=== PATIENT | male | born 1940 | race Caucasian/White ===

== ENCOUNTER → 2017-02-07 | Outpatient (CLI) | payer MEDICARE, BC ==
[2017-02-07 11:50] LABS: Calcium 10.3 mg/dL (8.4-10.2); Potassium 5.1 mmol/L (3.5-5.1); Total Bilirubin 0.8 mg/dL (0.2-1.3); Total Protein 7.2 g/dL (6.3-8.2)
== END | disposition home or self-care (01) ==
LOC: LABWHC1 11:05
PROVIDERS: ATTEND Internal Medicine Interventional Cardiology
DX: I10 Essential (primary) hypertension (principal)
CPT/HCPCS: 36415; 80053

== ENCOUNTER → 2017-02-21 | Outpatient (CLI) | payer MEDICARE, BC ==
[2017-02-21 10:56] LABS: Anion Gap 11 mmol/L; Blood Urea Nitrogen 27 mg/dL (9-20); Carbon Dioxide 30 mmol/L (22-30); Chloride 101 mmol/L (98-107); Potassium 4.1 mmol/L (3.5-5.1); Sodium 142 mmol/L (137-145)
== END | disposition home or self-care (01) ==
LOC: LABWHC1 10:30
PROVIDERS: ATTEND Internal Medicine Interventional Cardiology
DX: I10 Essential (primary) hypertension (principal)
CPT/HCPCS: 36415; 80051; 82565; 84520

== ENCOUNTER → 2017-03-28 | Outpatient (CLI) | payer MEDICARE, BC ==
[2017-03-28 14:45] LABS: Potassium 4.4 mmol/L (3.5-5.1)
== END | disposition home or self-care (01) ==
LOC: LABWHC1 13:43
PROVIDERS: ATTEND Internal Medicine Interventional Cardiology
DX: I10 Essential (primary) hypertension (principal)
CPT/HCPCS: 36415; 80051; 82565; 84520

== ENCOUNTER 2018-04-11 14:41 | Emergency (ER) | payer MEDICARE, BC ==
[2018-04-11 15:08] VITALS: RESP 18
[2018-04-11 15:18] LABS: Albumin 2.8 g/dL (3.5-5.0); Calcium 8.7 mg/dL (8.4-10.2); Magnesium 2.2 mg/dL (1.6-2.3); Potassium 4.3 mmol/L (3.5-5.1); Total Bilirubin 0.6 mg/dL (0.2-1.3); Total Protein 5.6 g/dL (6.3-8.2)
[2018-04-11 15:24] LABS: Anisocytosis Slight; Hypochromasia Marked; MCH 29.1 pg (25.0-35.0); MCHC 30.1 g/dL (31.0-37.0); MCV 96.6 fL (80.0-100.0); Macrocytosis Slight; Mean Platelet Volume 6.9; Platelet Count 431 k/uL (150-450); RBC 2.28 m/uL (4.30-5.90); RDW 18.2 % (11.5-15.5); WBC 15.4 k/uL (3.8-10.6)
[2018-04-11 15:30] LABS: HGB 6.6 gm/dL (13.0-17.5)
[2018-04-11 15:44] LABS: Lymphocytes # (M) 0.77 k/uL (1.0-4.8); Monocytes # (M) 1.69 k/uL (0-1.0); Neutrophils # (M) 13.09 k/uL (1.3-7.7); Neutrophils % (M) 85 %; Nucleated Red Blood Cells 0 /100 WBC (0-0); Total Cells Counted 200
[2018-04-11 15:46] LABS: Poikilocytosis (M) Present; Polychromasia Present
[2018-04-11 15:50] LABS: Target Cells Present
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
[2018-04-11 20:19] VITALS: BP 127/60; PULSE 89; TEMP 99
== END 2018-04-11 20:33 | disposition home or self-care (01) ==
LOC: EC 14:41
DX: D64.9 Anemia, unspecified (principal); E78.5 Hyperlipidemia, unspecified; I10 Essential (primary) hypertension; M19.90 Unspecified osteoarthritis, unspecified site; Z87.891 Personal history of nicotine dependence; Z79.82 Long term (current) use of aspirin; Z79.01 Long term (current) use of anticoagulants; Z79.899 Other long term (current) drug therapy; Z93.1 Gastrostomy status
CPT/HCPCS: 36415; 93005; 86900; 86901; 80053; 83735; 85025; 86850; 86920; 82272; 99284; P9016

== ENCOUNTER 2018-04-13 14:55 | Emergency (ER) | payer MEDICARE, BC ==
[2018-04-13] MEDS ORDERED: ACETAMINOPHEN TAB 325 MG TAB PO STA (15:45)
[2018-04-13] MEDS ORDERED: RX INFO: IV CONTRAST WAS GIVEN 1 EACH MISC MISCELLANE PRN (15:45)
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
[2018-04-13 16:29] LABS: Anisocytosis Slight; Basophils % (A) 0 %; Eosinophils # (A) 0.3 k/uL (0-0.7); Eosinophils % (A) 3 %; HCT 24.6 % (39.0-53.0); HGB 7.3 gm/dL (13.0-17.5); Hypochromasia Marked; Lymphocytes # (A) 0.8 k/uL (1.0-4.8); Lymphocytes % (A) 7 %; MCHC 29.7 g/dL (31.0-37.0); MCV 97.9 fL (80.0-100.0); Macrocytosis Slight; Mean Platelet Volume 6.9; Monocytes # (A) 0.7 k/uL (0-1.0); Monocytes % (A) 7 %; Neutrophils % (A) 82 %; Platelet Count 428 k/uL (150-450); RBC 2.51 m/uL (4.30-5.90); WBC 10.9 k/uL (3.8-10.6)
[2018-04-13 16:35] LABS: INR 0.9 (<1.2); Partial Thromboplastin Time 26.3 sec (22.0-30.0); Prothrombin Time 10.1 sec (9.0-12.0)
[2018-04-13 16:40] LABS: Albumin 2.9 g/dL (3.5-5.0); Calcium 8.5 mg/dL (8.4-10.2); Magnesium 2.2 mg/dL (1.6-2.3); Potassium 4.6 mmol/L (3.5-5.1); Total Bilirubin 0.6 mg/dL (0.2-1.3); Total Protein 5.8 g/dL (6.3-8.2)
[2018-04-13 16:43] LABS: Creatine Kinase 30 U/L (55-170)
[2018-04-13 16:56] LABS: Creatine Kinase MB 1.2 ng/mL (0.0-2.4); Troponin I <0.012 ng/mL (0.000-0.034)
--- NOTE | 2018-04-13 18:08 | XR ---
EXAMINATION TYPE: XR chest 1V DATE OF EXAM: 04/13/2018 COMPARISON: 03/14/2018 HISTORY: Leg edema TECHNIQUE: Single frontal view of the chest is obtained. FINDINGS: There is no heart failure nor confluent pneumonic infiltrate. Thoracic aorta is atheromato us. Heart size is normal. There are chest leads. IMPRESSION: No active cardiopulmonary disease. No change.
[2018-04-13] MEDS ORDERED: FUROSEMIDE 10 MG/ML 4 ML VIAL IV STA (18:22)
--- NOTE | 2018-04-13 18:52 | CT ---
EXAMINATION TYPE: CT abdomen pelvis w con DATE OF EXAM: 04/13/2018 COMPARISON: None HISTORY: Abdominal swelling post surgery. Low hemoglobin. Left hip and pelvic surgery. CT DLP: 1115 mGycm Automated exposure control for dose reduction was used. TECHNIQUE: Helical acquisition of images was performed from the lung bases through the pelvis. CONTRAST: Performed without Oral Contrast and with IV Contrast, patient injected with 100 mL of Isovue 300. FINDINGS: There is some patchy atelectasis at the right lung base. Heart is normal in size. There is minimal pl eural thickening at the right lung base. There is no pericardial effusion. There is coronary artery c alcification. Liver and gallbladder appear normal. Bile ducts are not dilated. Spleen appears normal. There is no p ancreatic mass. Stomach has normal size and contour. There is no adrenal mass. Kidneys show satisfactory contrast opacification. There is no hydronephrosi s. There is minimal renal vascular calcification. 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 There is no evidence of dissection. There is patency of the iliac and femoral arter ies. There is left hip surgery. There is metal artifact. Bladder distends smoothly. There is no free fluid in the pelvis. There is no evidence of inguinal hernia. There is no evidence of a bowel obstruc tion. I see no free air. There is no ascites. There is no evidence of mesenteric edema. There is a 1. 3 cm cyst on the lateral right kidney. Appendix is not seen. There is no sign of appendicitis. There is moderate multilevel spondylotic changes noted in the lumbar spine. There is no compression fractur e. 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 There are some destructive changes in the anterior aspect of the L2 vertebral body. IMPRESSION: THERE IS SOME PATCHY ATELECTASIS AT THE RIGHT LUNG BASE. NO RENAL STONE OR OBSTRUCTION. NO SIGN OF AN ACUTE ABDOMEN. ABDOMINAL AORTIC ANEURYSM. L2 vertebral body destructive changes anteriorly of uncertain significance. This could relate to meta static disease.
--- NOTE | 2018-04-13 18:57 | CT ---
CT scan of the left hip. History pain and swelling. Comparison none. TECHNIQUE: Multiple axial sections were obtained from the left iliac crest to the mid shaft of the femur with c ontrast. Contrast is present from the CT abdomen pelvis exam. FINDINGS: There is 4.5 cm aneurysm of the lower abdominal aorta. There is extensive hardware fixating the left acetabulum and the left inferior and superior pubic rami. There is a left hip prosthesis. Prosthesis appears in good position. There is subcutaneous edema around the left thigh and hip. There is a compl ex appearing fluid collection lateral to the femoral component of the prosthesis. This appears to jeevan sures 13 cm in length and up to 4.3 cm in diameter. There is mixed density in the posterior left butt ock region consistent with hematoma. This measures approximately 6 cm. There is a lucency involving t he lesser trochanter of the femur with loss of cortex. IMPRESSION: Hip prosthesis appears in anatomic position. Extensive surgery. Complex fluid collections lateral to the femoral component of the prosthesis and also in the left but tock consistent with hematoma or abscess. Follow-up is recommended. There are destructive changes of the lesser trochanter that could relate to osteomyelitis.
[2018-04-13 19:13] LABS: Appearance,Urine Clear (Clear); Bacteria,Urine Rare /hpf; Bilirubin,Urine Negative (Negative); Blood,Urine Moderate (Negative); Color,Urine Yellow; Glucose,Urine (UA) Negative (Negative); Ketones,Urine Negative (Negative); Leukocyte Esterase,Urine Small (Negative); Nitrite,Urine Negative (Negative); PH, Urine 6.5 (5.0-8.0); Protein,Urine Trace (Negative); RBC,Urine 28 /hpf (0-5); Specific Gravity,Urine 1.024 (1.001-1.035); Squamous Epithelial Cell,Urine <1 /hpf (0-4); Urobilinogen,Urine <2.0 mg/dL (<2.0); WBC,Urine 34 /hpf (0-5)
[2018-04-13] MEDS ORDERED: VANCOMYCIN IV PER PHARMACY 1 EACH MISC MISCELLANE PRN (19:59)
[2018-04-13] MEDS ORDERED: VANCOMYCIN 1,500 MG in SODIUM CHLORIDE 0.9% 250 ML IVPB STA (20:10)
[2018-04-13 20:33] VITALS: PULSE 84
[2018-04-13 20:43] VITALS: BP 118/57; RESP 18; TEMP 100.2
[2018-04-13] MEDS ORDERED: PIPERACILLIN-TAZOBACTAM 3.375 GM in SODIUM CHLORIDE 0.9% 100 ML IVPB ONE (21:15)
[2018-04-14] MEDS ORDERED: PIPERACILLIN-TAZOBACTAM 3.375 GM in SODIUM CHLORIDE 0.9% 100 ML IVPB SCH (06:00)
[2018-04-14] MEDS ORDERED: VANCOMYCIN 1,500 MG in SODIUM CHLORIDE 0.9% 250 ML IVPB SCH (14:00)
== END 2018-04-13 21:10 | disposition short-term general hospital (02) ==
LOC: EC 14:55
DX: D64.9 Anemia, unspecified (principal); N39.0 Urinary tract infection, site not specified; A41.9 Sepsis, unspecified organism; R79.89 Other specified abnormal findings of blood chemistry; M96.89 Other intraoperative and postprocedural complications and disorders of the musculoskeletal system; R60.0 Localized edema; E78.5 Hyperlipidemia, unspecified; I10 Essential (primary) hypertension; M19.90 Unspecified osteoarthritis, unspecified site; Z87.891 Personal history of nicotine dependence; Z79.01 Long term (current) use of anticoagulants; Z79.82 Long term (current) use of aspirin; Z79.899 Other long term (current) drug therapy; Z96.642 Presence of left artificial hip joint; Z98.890 Other specified postprocedural states; Z87.81 Personal history of (healed) traumatic fracture
CPT/HCPCS: 51798; 36415; 93005; 86900; 86901; 83880; 80053; 82550; 82553; 83605; 83735; 84484; 85025; 85610; 85730; 86850; 86920; 81001; 87040; 87086; 87502; 71045; 74177; 73701; 99285; 96365; 96375; P9016; J3370; J1940; Q9967; 87077; 87186

== ENCOUNTER 2018-08-30 13:44 | Inpatient (IN) | payer MEDICARE, BC ==
[2018-08-30] MEDS ORDERED: IBUPROFEN 600 MG TAB PO STA (14:00)
[2018-08-30] MEDS ORDERED: ACETAMINOPHEN TAB 500 MG TAB PO STA (14:00)
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
[2018-08-30] MEDS: SODIUM CHLORIDE 0.9% 500 ML 500 ML IV SCH (14:24)
--- NOTE | 2018-08-30 14:41 | XR ---
EXAMINATION TYPE: XR chest 2V DATE OF EXAM: 08/30/2018 COMPARISON: 04/13/2018 HISTORY: Weakness TECHNIQUE: Frontal and lateral views of the chest are obtained. FINDINGS: New spiculated right upper lobe suprahilar density is seen. Remainder the lungs are clear. Superior mediastinal contour widening is partially attributable to rotation and appears chronic, les s pronounced than on the prior of 04/13/2018. The osseous structures are intact. Moderate multilevel degenerative changes of the spine. IMPRESSION: New suprahilar density that given its spiculated morphology is concerning for right uppe r lobe mass, however this could alternatively represent pneumonia. Correlate with clinical findings t o determine the need for short-term follow-up versus CT thorax.
[2018-08-30 14:45] LABS: Anisocytosis Slight; Basophils % (A) 0 %; Eosinophils % (A) 0 %; HCT 32.2 % (39.0-53.0); HGB 9.6 gm/dL (13.0-17.5); Hypochromasia Marked; Lymphocytes # (A) 0.7 k/uL (1.0-4.8); Lymphocytes % (A) 3 %; MCH 24.5 pg (25.0-35.0); MCHC 29.9 g/dL (31.0-37.0); MCV 82.1 fL (80.0-100.0); Mean Platelet Volume 6.8; Monocytes # (A) 1.1 k/uL (0-1.0); Monocytes % (A) 5 %; Neutrophils # (A) 20.9 k/uL (1.3-7.7); Neutrophils % (A) 91 %; Platelet Count 613 k/uL (150-450); RBC 3.92 m/uL (4.30-5.90); RDW 18.2 % (11.5-15.5); WBC 22.9 k/uL (3.8-10.6)
[2018-08-30 14:52] LABS: Albumin 3.1 g/dL (3.5-5.0); Potassium 4.9 mmol/L (3.5-5.1); Total Bilirubin 0.6 mg/dL (0.2-1.3); Total Protein 6.2 g/dL (6.3-8.2)
[2018-08-30 14:58] LABS: Partial Thromboplastin Time 27.1 sec (22.0-30.0); Prothrombin Time 10.9 sec (9.0-12.0)
[2018-08-30 15:15] LABS: Appearance,Urine Cloudy (Clear); Bilirubin,Urine Negative (Negative); Blood,Urine Trace (Negative); Color,Urine Yellow; Glucose,Urine (UA) Negative (Negative); Hyaline Casts,Urine 3 /lpf (0-2); Ketones,Urine Negative (Negative); Leukocyte Esterase,Urine Large (Negative); Mucus,Urine Rare /hpf; Nitrite,Urine Positive (Negative); Protein,Urine Trace (Negative); RBC,Urine 8 /hpf (0-5); Specific Gravity,Urine 1.016 (1.001-1.035); Squamous Epithelial Cell,Urine 1 /hpf (0-4); Urobilinogen,Urine <2.0 mg/dL (<2.0); WBC,Urine 80 /hpf (0-5)
[2018-08-30] MEDS ORDERED: cefTRIAXone IN SWFI 1,000 MG/10 ML SYRINGE IVP STA (15:26)
[2018-08-30] MEDS ORDERED: AZITHROMYCIN 500 MG in SODIUM CHLORIDE 0.9% 250 ML IVPB STA (16:32)
[2018-08-30] MEDS ORDERED: PNEUMONIA PROTOCOL UTILIZED 1 EACH MISC PO PRN (16:32)
[2018-08-30] MEDS: SODIUM CHLORIDE 0.9% 1,000 ML IV SCH (18:24)
[2018-08-30] MEDS: HEPARIN SODIUM,PORCINE 5,000 UNIT/ML 1 ML VIAL SQ SCH (20:39)
[2018-08-30] MEDS: MEMANTINE 10 MG TAB PO SCH (20:39)
[2018-08-31] MEDS: SODIUM CHLORIDE 0.9% 1,000 ML IV SCH ×3 (00:10→15:33)
[2018-08-31] MEDS: buPROPion SR 150 MG TABLET.ER PO SCH (08:18)
[2018-08-31] MEDS: AZITHROMYCIN 500 MG TAB PO SCH (08:18)
[2018-08-31] MEDS: HEPARIN SODIUM,PORCINE 5,000 UNIT/ML 1 ML VIAL SQ SCH ×2 (08:18→22:37)
[2018-08-31] MEDS: DOCUSATE 100 MG CAP PO SCH (08:18)
[2018-08-31] MEDS: MEMANTINE 10 MG TAB PO SCH ×2 (08:18→22:35)
[2018-08-31] MEDS: amLODIPine 10 MG TAB PO SCH (08:18)
--- NOTE | 2018-08-31 09:28 | XR ---
EXAMINATION TYPE: XR chest 1V portable DATE OF EXAM: 08/31/2018 COMPARISON: 08/30/2018 INDICATION: Follow-up pneumonia TECHNIQUE: Single frontal view of the chest is obtained. FINDINGS: The heart size is normal. The pulmonary vasculature is normal. There is improving infiltrate in the right upper lobe. Atelectasis is likely present with elevation o f the minor fissure. Continued follow-up is recommended. Degenerative changes and probable chronic rotator cuff tear as the left shoulder IMPRESSION: 1. Resolving right upper lobe infiltrate. Follow-up to complete clearing is recommended.
[2018-08-31 11:35] LABS: Calcium 9.1 mg/dL (8.4-10.2); Potassium 4.3 mmol/L (3.5-5.1)
[2018-08-31 12:03] LABS: Anisocytosis Slight; Basophils % (A) 0 %; Eosinophils % (A) 0 %; HCT 28.9 % (39.0-53.0); HGB 8.6 gm/dL (13.0-17.5); Hypochromasia Marked; Lymphocytes # (A) 0.8 k/uL (1.0-4.8); Lymphocytes % (A) 7 %; MCH 24.8 pg (25.0-35.0); MCHC 29.9 g/dL (31.0-37.0); MCV 82.9 fL (80.0-100.0); Mean Platelet Volume 6.4; Microcytosis Slight; Monocytes # (A) 0.6 k/uL (0-1.0); Monocytes % (A) 4 %; Neutrophils # (A) 11.1 k/uL (1.3-7.7); Neutrophils % (A) 88 %; Platelet Count 475 k/uL (150-450); RBC 3.49 m/uL (4.30-5.90); RDW 18.7 % (11.5-15.5); WBC 12.6 k/uL (3.8-10.6)
--- NOTE | 2018-08-31 14:33 | XR ---
EXAMINATION TYPE: XR Hip RT and AP Pelvis DATE OF EXAM: 08/31/2018 COMPARISON: HISTORY: Pain fall TECHNIQUE: 2 view right hip with AP pelvis FINDINGS: Vascular calcification is noted. Joint spaces mild narrowing. No acute fractures or dislocations are evident. AP pelvis: Extensive repair of a left pelvic fracture is evident. IMPRESSION: 1. No acute osseous abnormality right hip. 2. Mild degenerative change.
[2018-08-31] MEDS: ACETAMINOPHEN TAB 325 MG TAB PO PRN (16:08)
[2018-08-31] MEDS: ASPIRIN 81 MG PO SCH (16:08)
[2018-08-31] MEDS: ATORVASTATIN 10 MG TAB PO SCH (16:08)
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
--- NOTE | 2018-09-01 00:54 | P.PN ---
Subjective Progress Note Date: 08/31/18 Principal diagnosis: Pneumonia right upper lobe Patient is a 78-year-old male with a known history of dementia, hypertension, hyperlipidemia and osteoarthritis and recent history of left hip fracture and fall came to ER with the complaints of generalized weakness and unable to walk without support. Patient has been having worsening weakness recently. Patient felt very weak and had a fall today which made him come to the ER. As per his also weak and leaned onto the floor. Denied any sudden fall or hit his head. Patient was released from the extended care facility 6 weeks ago. Denied any complaints of chest pain or shortness of breath. Patient does have cough w ithout sputum production. No fever no chills. Denied any heart racing of fast. No nausea vomiting or diarrhea. No dysuria or hematuria. No leg swelling. No focal weakness and numbness. No tingling sensation. Chest x-ray showed new sub-hilar density that given its spiculated morphology is concerning for right upper lobe mass, however this could alternatively the present pneumonia. Correlated the clinical findings to determine the need for short-term follow-up versus CT thorax. Patient was found have leukocytosis with WBC count 22, lactic acid 2.4 and a slightly elevated BUN and creatinine level. Patient is a poor historian and most the history was taken from the medical records and his at bedside. 08/31/2018 Patient is more awake and alert today. Able to communicate slowly. Patient does have underlying dementia otherwise. Leukocytosis is improving. Repeat chest x-ray showed resolving right upper lobe infiltrate. Patient is complaining of right hip pain and x-ray showed no acute process. Continue with pain management with Tylenol. No fever no chills. No nausea vomiting or abdominal pain. Patient was started on PTOT and possible transfer to rehab. Current medications reviewed. Objective - Vital Signs Vital signs: Vital Signs Temp 97.9 F 08/31/18 14:52 Pulse 82 08/31/18 15:02 Resp 18 08/31/18 15:02 BP 130/65 08/31/18 14:52 Pulse Ox 91 L 08/31/18 14:52 Intake & Output 08/30/18 08/31/18 08/31/18 18:59 06:59 18:59 Intake Total 340 100 Balance 340 100 Weight 74.843 kg Intake: Oral 340 100 Other: Voiding Method Urinal Incontinent Incontinent # Voids 1 3 - Exam PHYSICAL EXAMINATION: Patient is lying in the bed comfortably, no acute distress, awake alert and oriented. Generalized weakness.. HEENT: Normocephalic. Neck is supple. Pupils reactive. Nostrils clear. Oral cavity is moist. Ears reveal no drainage. Neck reveals no JVD, carotid bruits, or thyromegaly. CHEST EXAMINATION: Trachea is central. Symmetrical expansion. No wheezing. Lung chao clear to auscultation and percussion. CARDIAC: Normal S1, S2 with no gallops. No murmurs ABDOMEN: Soft. Bowel sounds normal. No organomegaly. No abdominal bruits. Extremities: reveal no edema. No clubbing or cyanosis Neurologically awake, alert, oriented x2-3 with well-coordinated movements. No focal deficits noted Skin: No rash or skin lesions. Psychiatric: Coperative. Nonsuicidal Musculoskeletal: No joint swelling or deformity. Normal range of motion. - Labs CBC & Chem 7: 08/31/18 11:01 08/31/18 11:01 Labs: Abnormal Lab Results - Last 24 Hours (Table) 08/31/18 Range/Units 11:01 WBC 12.6 H (3.8-10.6) k/uL RBC 3.49 L (4.30-5.90) m/uL Hgb 8.6 L (13.0-17.5) gm/dL Hct 28.9 L (39.0-53.0) % MCH 24.8 L (25.0-35.0) pg MCHC 29.9 L (31.0-37.0) g/dL RDW 18.7 H (11.5-15.5) % Plt Count 475 H (150-450) k/uL Neutrophils # 11.1 H (1.3-7.7) k/uL Lymphocytes # 0.8 L (1.0-4.8) k/uL Microbiology - Last 24 Hours (Table) 08/30/18 14:56 Urine Culture - Preliminary Urine,Voided Assessment and Plan Assessment: Acute right upper lobe pneumonia. Possible right upper lobe mass cannot be excluded. Repeat chest x-ray showed resolving infiltrate. Acute urinary tract infection with gram-negative bacilli Sepsis secondary to pneumonia Lactic acidosis resolved Normocytic anemia. Rule out iron deficiency, B12 deficiency Generalized weakness and medical debility Dementia Hypertension Hyperlipidemia Osteoarthritis History of fall and left hip fracture earlier this year. Previous history of smoking DVT prophylaxis plan: Patient will be continued on antibiotics in the form of ceftriaxone and azithromycin. Continue the IV hydration. Continue the home medications. Pain management and stool softeners as needed. PTOT and further recommendations based on the clinical course. Prognosis is guarded this time. Discussed the plan with his at bedside in detail. Time with Patient: Greater than 30
[2018-09-01] MEDS: SODIUM CHLORIDE 0.9% 1,000 ML IV SCH (02:54)
[2018-09-01] MEDS: HEPARIN SODIUM,PORCINE 5,000 UNIT/ML 1 ML VIAL SQ SCH ×2 (08:27→21:38)
[2018-09-01] MEDS: DOCUSATE 100 MG CAP PO SCH (08:27)
[2018-09-01] MEDS: MEMANTINE 10 MG TAB PO SCH ×2 (08:27→21:35)
[2018-09-01] MEDS: amLODIPine 10 MG TAB PO SCH (08:27)
[2018-09-01] MEDS: AZITHROMYCIN 500 MG TAB PO SCH (08:27)
[2018-09-01] MEDS: buPROPion SR 150 MG TABLET.ER PO SCH (08:29)
[2018-09-01 08:39] LABS: Anisocytosis Slight; Basophils % (A) 0 %; Eosinophils % (A) 0 %; HCT 30.6 % (39.0-53.0); HGB 9.4 gm/dL (13.0-17.5); Hypochromasia Moderate; Lymphocytes % (A) 8 %; MCH 25.4 pg (25.0-35.0); MCHC 30.8 g/dL (31.0-37.0); MCV 82.5 fL (80.0-100.0); Mean Platelet Volume 6.3; Microcytosis Slight; Monocytes # (A) 0.7 k/uL (0-1.0); Monocytes % (A) 5 %; Neutrophils # (A) 10.1 k/uL (1.3-7.7); Neutrophils % (A) 85 %; Platelet Count 515 k/uL (150-450); RBC 3.71 m/uL (4.30-5.90); RDW 18.7 % (11.5-15.5)
[2018-09-01 09:16] LABS: African American GFR (CKD) >90 (>60 ml/min/1.73 sqM); Anion Gap 12 mmol/L; Blood Urea Nitrogen 16 mg/dL (9-20); Calcium 9.2 mg/dL (8.4-10.2); Carbon Dioxide 23 mmol/L (22-30); Chloride 106 mmol/L (98-107); Glucose 83 mg/dL (74-99); Potassium 3.7 mmol/L (3.5-5.1); Sodium 141 mmol/L (137-145)
[2018-09-01 10:23] LABS: T4, Free (Free Thyroxine) 1.77 ng/dL (0.78-2.19)
--- NOTE | 2018-09-01 10:33 | P.PN ---
Subjective Patient is a 78-year-old male with a known history of dementia, hypertension, hyperlipidemia and osteoarthritis and recent history of left hip fracture and fall came to ER with the complaints of generalized weakness and unable to walk without support. Patient has been having worsening weakness recently. Patient felt very weak and had a fall today which made him come to the ER. As per his also weak and leaned onto the floor. Denied any sudden fall or hit his head. Patient was released from the extended care facility 6 weeks ago. Denied any complaints of chest pain or shortness of breath. Patient does have cough without sputum production. No fever no chills. Denied any heart racing of fast. No nausea vomiting or diarrhea. No dysuria or hematuria. No leg swelling. No focal weakness and numbness. No tingling sensation. Chest x-ray showed new sub-hilar density that given its spiculated morphology is concerning for right upper lobe mass, however this could alternatively the present pneumonia. Correlated the clinical findings to determine the need for short-term follow-up versus CT thorax. Patient was found have leukocytosis with WBC count 22, lactic acid 2.4 and a slightly elevated BUN and creatinine level. Patient is a poor historian and most the history was taken from the medical records and his at bedside. 08/31/2018 Patient is more awake and alert today. Able to communicate slowly. Patient does have underlying dementia otherwise. Leukocytosis is improving. Repeat chest x-ray showed resolving right upper lobe infiltrate. Patient is complaining of right hip pain and x-ray showed no acute process. Continue with pain management with Tylenol. No fever no chills. No nausea vomiting or abdominal pain. Patient was started on PTOT and possible transfer to rehab. 09/01/2018 Patient denies dysuria or abdominal pain. He still have some dyspnea and some cough with little of phlegm. No chest pain. No exertional dyspnea. He is hemodynamically stable. Labs showing a still leukocytosis from 12.6 down to 12.0 K. Hemoglobin at 9.4, white platelet elevated at 5.5. INR is 1.0. BMP showing normal electrolytes of sodium 1 potassium and calcium. Creatinine is within normal limits at 0.9, his lactic acid is back to normal to 1.1. And TSH showing 0.3 while free T4 is within normal at 1.77. Urinalysis is suspicious for infection and patient is already on antibiotics of ceftriaxone and Zit hromax. It looks like patient most likely has pneumonia more than UTI. His pneumonia of the right upper lobe is suspicious for mass. We going to repeat chest x-ray tomorrow while he is on antibiotics. It is still suspicious lesion that might consider pulmonary team evaluation. The meantime continue with oral Zithromax and IV ceftriaxone while on gentle hydration of normal saline at 50 mL per hour Review of systems CONSTITUTIONAL: No fever, no malaise, no fatigue. HEENT: No recent visual problems or hearing problems. Denied any sore throat. CARDIOVASCULAR: No orthopnea, PND, no palpitations, no syncope. PULMONARY: no hemoptysis. GASTROINTESTINAL: No diarrhea, no nausea, no vomiting, no abdominal pain. Normoactive bowel sounds. NEUROLOGICAL: No headaches, no weakness, no numbness. HEMATOLOGICAL: Denies any bleeding or petechiae. GENITOURINARY: Denies any burning micturition, frequency, or urgency. MUSCULOSKELETAL/RHEUMATOLOGICAL: Denies any joint pain, swelling, or any muscle pain. ENDOCRINE: Denies any polyuria or polydipsia. Medication: Tylenol 650 mg, Norvasc 10 mg, aspirin 81 mg, atorvastatin 10 mg, Zithromax 500 mg, Wellbutrin 150 mg, ceftriaxone 1 g, Pepcid 20 mg, heparin 5000 units, Namenda 10 mg, sodium chloride at 50 mL/h. Objective - Vital Signs Vital signs: Vital Signs Temp 98.1 F 09/01/18 05:19 Pulse 98 09/01/18 05:19 Resp 18 09/01/18 05:19 BP 131/69 09/01/18 05:19 Pulse Ox 96 09/01/18 05:19 Intake & Output 08/31/18 09/01/18 09/01/18 18:59 06:59 18:59 Intake Total 100 Balance 100 Intake: Oral 100 Other: Voiding Method Incontinent Diaper Incontinent Incontinent # Voids 3 3 - Exam GENERAL: The patient is alert and oriented x3, not in any acute distress. Well developed, well nourished. HEENT: Pupils are round and equally reacting to light. EOMI. No scleral icterus. No conjunctival pallor. Normocephalic, atraumatic. No pharyngeal erythema. No thyromegaly. CARDIOVASCULAR: S1 and S2 present. No murmurs, rubs, or gallops. -PULMONARY: Chest is clear to auscultation. Mild Scattered rhonchi and crackles. ABDOMEN: Soft, nontender, nondistended, normoactive bowel sounds. No palpable organomegaly. MUSCULOSKELETAL: No joint swelling or deformity. EXTREMITIES: No cyanosis, clubbing, or pedal edema. NEUROLOGICAL: Gross neurological examination did not reveal any focal deficits. SKIN: No rashes. - Labs CBC & Chem 7: 09/01/18 07:42 09/01/18 07:42 Labs: Abnormal Lab Results - Last 24 Hours (Table) 08/31/18 09/01/18 09/01/18 Range/Units 11:01 07:42 07:42 WBC 12.6 H 12.0 H (3.8-10.6) k/uL RBC 3.49 L 3.71 L (4.30-5.90) m/uL Hgb 8.6 L 9.4 L (13.0-17.5) gm/dL Hct 28.9 L 30.6 L (39.0-53.0) % MCH 24.8 L (25.0-35.0) pg MCHC 29.9 L 30.8 L (31.0-37.0) g/dL RDW 18.7 H 18.7 H (11.5-15.5) % Plt Count 475 H 515 H (150-450) k/uL Neutrophils # 11.1 H 10.1 H (1.3-7.7) k/uL Lymphocytes # 0.8 L (1.0-4.8) k/uL TSH 0.375 L (0.465-4.680) mIU/L Microbiology - Last 24 Hours (Table) 08/30/18 14:56 Urine Culture - Preliminary Urine,Voided Gram Neg Bacilli 08/30/18 13:06 Blood Culture - Preliminary Blood No Growth after 24 hours Assessment and Plan Assessment: Acute right upper lobe pneumonia. Possible right upper lobe mass cannot be exc luded. Repeat chest x-ray showed resolving infiltrate. Acute urinary tract infection with gram-negative bacilli Sepsis secondary to pneumonia Lactic acidosis resolved Normocytic anemia. Rule out iron deficiency, B12 deficiency Generalized weakness and medical debility Dementia Hypertension Hyperlipidemia Osteoarthritis History of fall and left hip fracture earlier this year. Previous history of smoking Plan: This is a pleasant 6 years old male who presents with right upper lobe pneumonia, with suspicious mass. Continue with antibiotics for complete acquired pneumonia cover and gram-negative and gram-positive bacteria. Continue with gentle hydration. Follow-up culture results.Labs and medication were reviewed.. Continue same treatment. Continue with symptomatic treatment. Resume home medication. Monitor lytes and vitals. DVT and GI prophylaxis. Further recommendations of the clinical course of the patient DVT prophylaxis: Subcutaneous heparin GI Prophylaxis: Pepcid PT/OT: Recommended ECF for subacute rehab. farmworker consult Prognosis is guarded
[2018-09-01] MEDS: ATORVASTATIN 10 MG TAB PO SCH (17:20)
[2018-09-01] MEDS: ASPIRIN 81 MG PO SCH (17:20)
[2018-09-01] MEDS: FAMOTIDINE 20 MG/2 ML VIAL IV SCH (21:38)
[2018-09-01] MEDS: ACETAMINOPHEN TAB 325 MG TAB PO PRN (21:41)
[2018-09-01 23:55] LABS: Iron Saturation 12.88 (15.00-50.00)
--- NOTE | 2018-09-02 07:26 | XR ---
EXAMINATION TYPE: XR chest 1V DATE OF EXAM: 09/02/2018 COMPARISON: 08/31/2018 INDICATION: Right upper lobe pneumonia TECHNIQUE: Single frontal view of the chest is obtained. FINDINGS: The heart size is normal. The pulmonary vasculature is normal. Consolidation in the right upper lobe continues to improve. Residual remains. Continued follow-up is recommended. Chronic rotator cuff tears are likely present bilaterally. IMPRESSION: 1. Continued improving right upper lobe pneumonia. Residual remains. Continued follow-up is recommend ed
[2018-09-02] MEDS: amLODIPine 10 MG TAB PO SCH (07:39)
[2018-09-02] MEDS: SODIUM CHLORIDE 0.9% 1,000 ML IV SCH (07:39)
[2018-09-02] MEDS: AZITHROMYCIN 500 MG TAB PO SCH (07:39)
[2018-09-02] MEDS: buPROPion SR 150 MG TABLET.ER PO SCH (07:40)
[2018-09-02] MEDS: DOCUSATE 100 MG CAP PO SCH (07:40)
[2018-09-02] MEDS: FAMOTIDINE 20 MG/2 ML VIAL IV SCH ×2 (07:40→20:29)
[2018-09-02] MEDS: HEPARIN SODIUM,PORCINE 5,000 UNIT/ML 1 ML VIAL SQ SCH ×2 (07:40→20:28)
[2018-09-02] MEDS: MEMANTINE 10 MG TAB PO SCH ×2 (07:40→20:29)
[2018-09-02] MEDS ORDERED: IPRATROPIUM-ALBUTEROL 3 ML NEB INHALATION PRN (08:00)
--- NOTE | 2018-09-02 08:46 | P.PN ---
Subjective Patient is a 78-year-old male with a known history of dementia, hypertension, hyperlipidemia and osteoarthritis and recent history of left hip fracture and fall came to ER with the complaints of generalized weakness and unable to walk without support. Patient has been having worsening weakness recently. Patient felt very weak and had a fall today which made him come to the ER. As per his also weak and leaned onto the floor. Denied any sudden fall or hit his head. Patient was released from the extended care facility 6 weeks ago. Denied any complaints of chest pain or shortness of breath. Patient does have cough without sputum production. No fever no chills. Denied any heart racing of fast. No nausea vomiting or diarrhea. No dysuria or hematuria. No leg swelling. No focal weakness and numbness. No tingling sensation. Chest x-ray showed new sub-hilar density that given its spiculated morphology is concerning for right upper lobe mass, however this could alternatively the present pneumonia. Correlated the clinical findings to determine the need for short-term follow-up versus CT thorax. Patient was found have leukocytosis with WBC count 22, lactic acid 2.4 and a slightly elevated BUN and creatinine level. Patient is a poor historian and most the history was taken from the medical records and his at bedside. 08/31/2018 Patient is more awake and alert today. Able to communicate slowly. Patient does have underlying dementia otherwise. Leukocytosis is improving. Repeat chest x-ray showed resolving right upper lobe infiltrate. Patient is complaining of right hip pain and x-ray showed no acute process. Continue with pain management with Tylenol. No fever no chills. No nausea vomiting or abdominal pain. Patient was started on PTOT and possible transfer to rehab. 09/01/2018 Patient denies dysuria or abdominal pain. He still have some dyspnea and some cough with little of phlegm. No chest pain. No exertional dyspnea. He is hemodynamically stable. Labs showing a still leukocytosis from 12.6 down to 12.0 K. Hemoglobin at 9.4, white platelet elevated at 5.5. INR is 1.0. BMP showing normal electrolytes of sodium 1 potassium and calcium. Creatinine is within normal limits at 0.9, his lactic acid is back to normal to 1.1. And TSH showing 0.3 while free T4 is within normal at 1.77. Urinalysis is suspicious for infection and patient is already on antibiotics of ceftriaxone and Zit hromax. It looks like patient most likely has pneumonia more than UTI. His pneumonia of the right upper lobe is suspicious for mass. We going to repeat chest x-ray tomorrow while he is on antibiotics. It is still suspicious lesion that might consider pulmonary team evaluation. The meantime continue with oral Zithromax and IV ceftriaxone while on gentle hydration of normal saline at 50 mL per hour 09/02/2018 Patient respiratory and urinary symptoms are improving. He had no dysuria or increased frequency. He slept some exertional dyspnea but improving with some scattered wheezing. Breathing treatment and bronchodilator was added today. His urine culture came back positive for pseudomonas resistant to many antibiotics. We will call infectious disease consult for further recommendati on, currently he is on ceftriaxone and oral Zithromax. repeat chest x-ray: Improving infiltrate. Patient was informed about his problems including the right upper lobe pneumonia, with possible mass/cancer needs to be excluded. Patient also has low-grade temperature yesterday at 100.2. Stress of Vitas looks stable. He has leukocytosis at 12 K. And hemoglobin at 9.4. Follow-up labs are pending. Review of systems CONSTITUTIONAL: No fever, no malaise, no fatigue. HEENT: No recent visual problems or hearing problems. Denied any sore throat. CARDIOVASCULAR: No orthopnea, PND, no palpitations, no syncope. PULMONARY: no hemoptysis. GASTROINTESTINAL: No diarrhea, no nausea, no vomiting, no abdominal pain. Normoactive bowel sounds. NEUROLOGICAL: No headaches, no weakness, no numbness. HEMATOLOGICAL: Denies any bleeding or petechiae. GENITOURINARY: Denies any burning micturition, frequency, or urgency. MUSCULOSKELETAL/RHEUMATOLOGICAL: Denies any joint pain, swelling, or any muscle pain. ENDOCRINE: Denies any polyuria or polydipsia. Medication: Tylenol 650 mg, Norvasc 10 mg, aspirin 81 mg, atorvastatin 10 mg, Zithromax 500 mg, Wellbutrin 150 mg, ceftriaxone 1 g, Pepcid 20 mg, heparin 5000 units, Namenda 10 mg, sodium chloride at 50 mL/h. Objective - Vital Signs Vital signs: Vital Signs Temp 98.7 F 09/02/18 04:35 Pulse 92 09/02/18 04:35 Resp 20 09/02/18 04:35 BP 135/66 09/02/18 04:35 Pulse Ox 95 09/02/18 04:35 Intake & Output 09/01/18 09/02/18 09/02/18 18:59 06:59 18:59 Intake Total 850 300 Output Total 3 Balance 850 297 Intake: Oral 850 300 Output: Urine 3 Other: Voiding Method Incontinent Diaper Toilet Incontinent Diaper Incontinent # Voids 1 1 # Bowel Movements 3 1 - Exam GENERAL: The patient is alert and oriented x3, not in any acute distress. Well developed, well nourished. HEENT: Pupils are round and equally reacting to light. EOMI. No scleral icterus. No conjunctival pallor. Normocephalic, atraumatic. No pharyngeal erythema. No thyromegaly. CARDIOVASCULAR: S1 and S2 present. No murmurs, rubs, or gallops. -PULMONARY: Chest is clear to auscultation. Mild Scattered rhonchi and crackles. ABDOMEN: Soft, nontender, nondistended, normoactive bowel sounds. No palpable organomegaly. MUSCULOSKELETAL: No joint swelling or deformity. EXTREMITIES: No cyanosis, clubbing, or pedal edema. NEUROLOGICAL: Gross neurological examination did not reveal any focal deficits. SKIN: No rashes. - Labs CBC & Chem 7: 09/01/18 07:42 09/01/18 07:42 Labs: Abnormal Lab Results - Last 24 Hours (Table) 09/01/18 09/01/18 Range/Units 07:42 07:42 Iron 21 L (65-175) ug/dL TIBC 163 L (228-460) ug/dL Iron Saturation 12.88 L (15.00-50.00) Ferritin 2086.0 H (22.0-322.0) ng/mL Vitamin B12 >4000.0 H (211-911) pg/mL TSH 0.375 L (0.465-4.680) mIU/L Microbiology - Last 24 Hours (Table) 08/30/18 14:56 Urine Culture - Final Urine,Voided Pseudomonas aeruginosa 08/30/18 13:06 Blood Culture - Preliminary Blood No Growth after 48 hours Assessment and Plan Assessment: Acute right upper lobe pneumonia. Possible right upper lobe mass cannot be excluded. Repeat chest x-ray showed resolving infiltrate. Acute urinary tract infection with Pseudomonas Sepsis secondary to pneumonia Lactic acidosis resolved Normocytic anemia. Rule out iron deficiency, B12 deficiency Generalized weakness and medical debility Dementia Hypertension Hyperlipidemia Osteoarthritis History of fall and left hip fracture earlier this year. Previous history of smoking Plan: This is a pleasant 6 years old male who presents with right upper lobe pneumonia, with suspicious mass. Will consider pulmonary team evaluation. Continue with antibiotics however call infectious disease consult for Pseudomonas in the urine and persistent fever.. Continue with gentle hydration. Follow-up culture results.Labs and medication were reviewed.. Continue same treatment. Continue with symptomatic treatment. Resume home medication. Monitor lytes and vitals. DVT and GI prophylaxis. Further recommendations of the clinical course of the patient DVT prophylaxis: Subcutaneous heparin GI Prophylaxis: Pepcid PT/OT: Recommended ECF for subacute rehab. food counter worker consult Prognosis is guarded
[2018-09-02] MEDS: ASPIRIN 81 MG PO SCH (17:04)
[2018-09-02] MEDS: ATORVASTATIN 10 MG TAB PO SCH (17:04)
[2018-09-02] MEDS: ACETAMINOPHEN TAB 325 MG TAB PO PRN (21:33)
[2018-09-02] MEDS ORDERED: MELATONIN 3 MG TABLET PO PRN (22:32)
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
[2018-09-03] MEDS: SODIUM CHLORIDE 0.9% 1,000 ML IV SCH ×2 (00:39→23:46)
[2018-09-03] MEDS: AZITHROMYCIN 500 MG TAB PO SCH (08:29)
[2018-09-03] MEDS: DOCUSATE 100 MG CAP PO SCH (08:29)
[2018-09-03] MEDS: amLODIPine 10 MG TAB PO SCH (08:29)
[2018-09-03] MEDS: buPROPion SR 150 MG TABLET.ER PO SCH (08:29)
[2018-09-03] MEDS: HEPARIN SODIUM,PORCINE 5,000 UNIT/ML 1 ML VIAL SQ SCH ×2 (08:29→20:41)
[2018-09-03] MEDS: FAMOTIDINE 20 MG/2 ML VIAL IV SCH (08:29)
[2018-09-03] MEDS: MEMANTINE 10 MG TAB PO SCH ×2 (08:29→20:41)
--- NOTE | 2018-09-03 13:06 | P.PN ---
Subjective Patient is a 78-year-old male with a known history of dementia, hypertension, hyperlipidemia and osteoarthritis and recent history of left hip fracture and fall came to ER with the complaints of generalized weakness and unable to walk without support. Patient has been having worsening weakness recently. Patient felt very weak and had a fall today which made him come to the ER. As per his also weak and leaned onto the floor. Denied any sudden fall or hit his head. Patient was released from the extended care facility 6 weeks ago. Denied any complaints of chest pain or shortness of breath. Patient does have cough without sputum production. No fever no chills. Denied any heart racing of fast. No nausea vomiting or diarrhea. No dysuria or hematuria. No leg swelling. No focal weakness and numbness. No tingling sensation. Chest x-ray showed new sub-hilar density that given its spiculated morphology is concerning for right upper lobe mass, however this could alternatively the present pneumonia. Correlated the clinical findings to determine the need for short-term follow-up versus CT thorax. Patient was found have leukocytosis with WBC count 22, lactic acid 2.4 and a slightly elevated BUN and creatinine level. Patient is a poor historian and most the history was taken from the medical records and his at bedside. 09/03/2018 Patient was sleeping at the time examination. He says that he's feeling fine shortness of breath is improving still coughing She doesn't complain of any chest pain racing heart, no abdominal pain, nausea and vomiting, or diarrhea constipation Objective - Vital Signs Vital signs: Vital Signs Temp 100.1 F H 09/03/18 05:45 Pulse 94 09/03/18 05:45 Resp 20 09/03/18 05:45 BP 126/65 09/03/18 05:45 Pulse Ox 92 L 09/03/18 05:45 Intake & Output 09/02/18 09/03/18 09/03/18 18:59 06:59 18:59 Intake Total 650 450 Output Total 2 Balance 650 448 Intake: Oral 650 450 Output: Stool 2 Other: Voiding Method Toilet Toilet Incontinent Diaper Diaper Incontinent Incontinent # Voids 2 3 # Bowel Movements 1 - Exam On exam, alert and oriented x3. HEENT: Conjunctivae normal. eyes normal. NECK: No JVD. No thyroid enlargement. No LNs CARDIOVASCULAR: S1, S2 muffled. No murmur RESPIRATION: Patient is having rhonchi and crackles present was not able to appreciate any wheezing. ABDOMEN: Soft, nontender . No guarding. no masses palpable. No ascites, No hepatosplenomegaly.Bowel sounds heard. LEGS: No edema. no swelling NERVOUS SYSTEM: Cranial N 2-12 grossly normal. Moves all 4 limbs. No focal deficits. No sensory deficit patient is really weak on the bilateral lower extremities when compared to the upper extremities. Skin: no ulcer no rash . - Labs CBC & Chem 7: 09/01/18 07:42 09/01/18 07:42 Labs: Abnormal Lab Results - Last 24 Hours (Table) 09/01/18 Range/Units 07:42 Transferrin 89.7 L (204.0-354.0) mg/dL Microbiology - Last 24 Hours (Table) 08/30/18 13:06 Blood Culture - Preliminary Blood No Growth after 72 hours Assessment and Plan Assessment: Acute right upper lobe pneumonia. Possible right upper lobe mass cannot be excluded. Repeat chest x-ray showed resolving infiltrate. Acute urinary tract infection with Pseudomonas Sepsis secondary to pneumonia Lactic acidosis resolved Normocytic anemia. Rule out iron deficiency, B12 deficiency Generalized weakness and medical debility Dementia Hypertension Hyperlipidemia Osteoarthritis History of fall and left hip fracture earlier this year. Previous history of smoking Plan We'll continue antibiotics for now We'll discuss with infectious disease to see the patient is a CT chest to rule out a mass. Chest x-ray shows improving infiltrates We'll continue rest of the medical care PT OT is following the patient Patient says that he does not have any back pain. We will need to begin to further as to why he is having weakness. Will probably get CT of the L-spine to rule out any pathology We'll continue to follow the patient
[2018-09-03] MEDS: ASPIRIN 81 MG PO SCH (17:57)
[2018-09-03] MEDS: ATORVASTATIN 10 MG TAB PO SCH (17:57)
[2018-09-03] MEDS: FAMOTIDINE 20 MG TAB PO SCH (20:40)
[2018-09-04] MEDS: FAMOTIDINE 20 MG TAB PO SCH ×2 (08:37→20:13)
[2018-09-04] MEDS: HEPARIN SODIUM,PORCINE 5,000 UNIT/ML 1 ML VIAL SQ SCH ×2 (08:37→20:13)
[2018-09-04] MEDS: amLODIPine 10 MG TAB PO SCH (08:37)
[2018-09-04] MEDS: DOCUSATE 100 MG CAP PO SCH (08:37)
[2018-09-04] MEDS: MEMANTINE 10 MG TAB PO SCH ×2 (08:37→20:13)
[2018-09-04] MEDS: AZITHROMYCIN 500 MG TAB PO SCH (08:37)
[2018-09-04] MEDS: buPROPion SR 150 MG TABLET.ER PO SCH (08:42)
[2018-09-04] MEDS ORDERED: BISACODYL 10 MG SUPP RECTAL PRN (14:06)
[2018-09-04] MEDS: ACETAMINOPHEN TAB 325 MG TAB PO PRN (14:17)
--- NOTE | 2018-09-04 14:19 | P.PN ---
Subjective Patient is a 78-year-old male with a known history of dementia, hypertension, hyperlipidemia and osteoarthritis and recent history of left hip fracture and fall came to ER with the complaints of generalized weakness and unable to walk without support. Patient has been having worsening weakness recently. Patient felt very weak and had a fall today which made him come to the ER. As per his also weak and leaned onto the floor. Denied any sudden fall or hit his head. Patient was released from the extended care facility 6 weeks ago. Denied any complaints of chest pain or shortness of breath. Patient does have cough without sputum production. No fever no chills. Denied any heart racing of fast. No nausea vomiting or diarrhea. No dysuria or hematuria. No leg swelling. No focal weakness and numbness. No tingling sensation. Chest x-ray showed new sub-hilar density that given its spiculated morphology is concerning for right upper lobe mass, however this could alternatively the present pneumonia. Correlated the clinical findings to determine the need for short-term follow-up versus CT thorax. Patient was found have leukocytosis with WBC count 22, lactic acid 2.4 and a slightly elevated BUN and creatinine level. Patient is a poor historian and most the history was taken from the medical records and his at bedside. 09/03/2018 Patient was sleeping at the time examination. He says that he's feeling fine shortness of breath is improving still coughing She doesn't complain of any chest pain racing heart, no abdominal pain, nausea and vomiting, or diarrhea constipation 09/04/2018 Patient seen and looks more alert and oriented today when compared to yesterday He does not complain of any chest pain racing heart, no cough no shortness of breath He does not complain of any abdominal pain, nausea and vomiting. Apparently is constipated didn't have a bowel movement Objective - Vital Signs Vital signs: Vital Signs Temp 98.9 F 09/04/18 13:06 Pulse 98 09/04/18 13:06 Resp 16 09/04/18 13:06 BP 135/73 09/04/18 13:06 Pulse Ox 94 L 09/04/18 13:06 Intake & Output 09/03/18 09/04/18 09/04/18 18:59 06:59 18:59 Other: Voiding Method Incontinent Incontinent # Voids 2 3 # Bowel Movements 0 - Exam On exam, alert and oriented x3. HEENT: Conjunctivae normal. eyes normal. NECK: No JVD. No thyroid enlargement. No LNs CARDIOVASCULAR: S1, S2 muffled. No murmur RESPIRATION: Patient is having rhonchi and crackles present was not able to ap preciate any wheezing. ABDOMEN: Soft, nontender . No guarding. no masses palpable. No ascites, No hepatosplenomegaly.Bowel sounds heard. LEGS: No edema. no swelling NERVOUS SYSTEM: Cranial N 2-12 grossly normal. Moves all 4 limbs. No focal deficits. No sensory deficit patient is really weak on the bilateral lower extremities when compared to the upper extremities. Skin: no ulcer no rash . - Labs CBC & Chem 7: 09/01/18 07:42 09/01/18 07:42 Labs: Microbiology - Last 24 Hours (Table) 08/30/18 13:06 Blood Culture - Preliminary Blood No Growth after 96 hours Assessment and Plan Assessment: Acute right upper lobe pneumonia. Possible right upper lobe mass cannot be excluded. Repeat chest x-ray showed resolving infiltrate. Acute urinary tract infection with Pseudomonas Sepsis secondary to pneumonia Lactic acidosis resolved Normocytic anemia. Rule out iron deficiency, B12 deficiency Generalized weakness and medical debility Dementia Hypertension Hyperlipidemia Osteoarthritis History of fall and left hip fracture earlier this year. Previous history of smoking Plan We'll continue antibiotics for now We'll discuss with infectious disease to see the patient is a CT chest to rule out a mass. Chest x-ray shows improving infiltrates We'll continue rest of the medical care PT OT is following the patient Patient says that he does not have any back pain. We will need to begin to further as to why he is having weakness. Will probably get CT of the L-spine to rule out any pathology We'll continue to follow the patient 09/04/2018 Continue antibiotics as per infectious disease recommendations. Antibiotics changed to Fortaz as the urine cultures grew Pseudomonas Continue rest of the medical care Continue PT OT Patient to go to rehab once stable. We'll wait for infectious disease recommendations regarding the antibiotics dose and duration and depending upon that we'll plan for discharge
[2018-09-04] MEDS: ATORVASTATIN 10 MG TAB PO SCH (16:41)
[2018-09-04] MEDS: ASPIRIN 81 MG PO SCH (16:41)
[2018-09-04] MEDS: SODIUM CHLORIDE 0.9% 1,000 ML IV SCH (20:13)
--- NOTE | 2018-09-05 00:55 | P.PN ---
Subjective Progress Note Date: 09/04/18 78-year-old male with multiple medical troubles that includes dementia, generalized weakness, fever and chills at admission. He was very weak and not feeling well when he was brought to hospital. Visit history of a fall with hip fracture requiring repair. He's him back in the home situation for about 6 weeks and has not been doing very well. He is no significant infectious disease service from several years ago when he presented to hospital with acute alteration of his mental status. At that point in time lumbar puncture was performed and the patient was initiated to antiviral therapy with acyclovir with concerns to please encephalitis. Workup was also performed for West Nile. 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 This related that he did have some improvement until the current illness which includes shortness of breath with cough fever and weakness. The patient is not a good historian. 09/04/2018 patient is feeling somewhat better. His fever has improved from 101.2-98.9. He seems to be tolerating the current antibiotic therapy well. He is less short of breath and is denying any new symptoms. He is somewhat of a poor historian though. Objective - Vital Signs Vital signs: Vital Signs Temp 98.3 F 09/04/18 20:30 Pulse 95 09/04/18 20:30 Resp 16 09/04/18 20:30 BP 118/65 09/04/18 20:30 Pulse Ox 95 09/04/18 20:30 Intake & Output 09/04/18 09/04/18 09/05/18 06:59 18:59 06:59 Intake Total 540 Balance 540 Intake: Oral 540 Other: Voiding Method Incontinent # Voids 3 1 1 # Bowel Movements 0 0 1 - Exam HEENT: Anicteric conjunctiva are pink and moist nasal mucosa grossly intact without significant lesions, there is no thrush. Poor dentition Neck: The neck is supple without significant lymphadenopathy or thyromegaly. Lungs: Symmetrical air entry with few expiratory wheezes without álvaro bronchial sounds in all dullness or egophony. Heart: Regular rate and rhythm with an audible S1-S2, no S3 no S4. There is no significant murmur click or rub, PMI was nondisplaced. Abdomen: Positive bowel sounds soft and nontender without palpable masses or organomegaly. There was no guarding or rebound. Extremities: The upper extremities have excellent pulses they are symmetric, no significant petechiae or telangiectasia. No splinter hemorrhages were noted. The lower extremities are free from significant edema. The peripheral pulses were 2+ and symmetric. Neuro: Awake alert oriented to person with some confusion. - Labs CBC & Chem 7: 09/01/18 07:42 09/01/18 07:42 Labs: Microbiology - Last 24 Hours (Table) 08/30/18 13:06 Blood Culture - Preliminary Blood No Growth after 120 hours Laboratory Results WBC 12.0 k/uL (3.8-10.6) H 09/01/18 07:42 RBC 3.71 m/uL (4.30-5.90) L 09/01/18 07:42 Hgb 9.4 gm/dL (13.0-17.5) L 09/01/18 07:42 Hct 30.6 % (39.0-53.0) L 09/01/18 07:42 MCV 82.5 fL (80.0-100.0) 09/01/18 07:42 MCH 25.4 pg (25.0-35.0) 09/01/18 07:42 MCHC 30.8 g/dL (31.0-37.0) L 09/01/18 07:42 RDW 18.7 % (11.5-15.5) H 09/01/18 07:42 Plt Count 515 k/uL (150-450) H 09/01/18 07:42 Neutrophils % 85 % 09/01/18 07:42 Lymphocytes % 8 % 09/01/18 07:42 Monocytes % 5 % 09/01/18 07:42 Eosinophils % 0 % 09/01/18 07:42 Basophils % 0 % 09/01/18 07:42 Neutrophils # 10.1 k/uL (1.3-7.7) H 09/01/18 07:42 Lymphocytes # 1.0 k/uL (1.0-4.8) 09/01/18 07:42 Monocytes # 0.7 k/uL (0-1.0) 09/01/18 07:42 Eosinophils # 0.0 k/uL (0-0.7) 09/01/18 07:42 Basophils # 0.0 k/uL (0-0.2) 09/01/18 07:42 Hypochromasia Moderate 09/01/18 07:42 Anisocytosis Slight 09/01/18 07:42 Microcytosis Slight 09/01/18 07:42 PT 10.9 sec (9.0-12.0) 08/30/18 13:06 INR 1.0 (<1.2) 08/30/18 13:06 APTT 27.1 sec (22.0-30.0) 08/30/18 13:06 Sodium 141 mmol/L (137-145) 09/01/18 07:42 Potassium 3.7 mmol/L (3.5-5.1) 09/01/18 07:42 Chloride 106 mmol/L (98-107) 09/01/18 07:42 Carbon Dioxide 23 mmol/L (22-30) 09/01/18 07:42 Anion Gap 12 mmol/L 09/01/18 07:42 BUN 16 mg/dL (9-20) 09/01/18 07:42 Creatinine 0.91 mg/dL (0.66-1.25) 09/01/18 07:42 Est GFR (CKD-EPI)AfAm >90 (>60 ml/min/1.73 sqM) 09/01/18 07:42 Est GFR (CKD-EPI)NonAf 79 (>60 ml/min/1.73 sqM) 09/01/18 07:42 Glucose 83 mg/dL (74-99) 09/01/18 07:42 Lactic Ac Sepsis Rflx Y 08/30/18 14:56 Plasma Lactic Acid Adeel 1.1 mmol/L (0.7-2.0) 08/30/18 18:35 Calcium 9.2 mg/dL (8.4-10.2) 09/01/18 07:42 Iron 21 ug/dL (65-175) L 09/01/18 07:42 TIBC 163 ug/dL (228-460) L 09/01/18 07:42 Iron Saturation 12.88 (15.00-50.00) L 09/01/18 07:42 Transferrin 89.7 mg/dL (204.0-354.0) L 09/01/18 07:42 Ferritin 2086.0 ng/mL (22.0-322.0) H 09/01/18 07:42 Total Bilirubin 0.6 mg/dL (0.2-1.3) 08/30/18 13:06 AST 17 U/L (17-59) 08/30/18 13:06 ALT 10 U/L (21-72) L 08/30/18 13:06 Alkaline Phosphatase 165 U/L (38-126) H 08/30/18 13:06 Total Protein 6.2 g/dL (6.3-8.2) L 08/30/18 13:06 Albumin 3.1 g/dL (3.5-5.0) L 08/30/18 13:06 Vitamin B12 >4000.0 pg/mL (211-911) H 09/01/18 07:42 TSH 0.375 mIU/L (0.465-4.680) L 09/01/18 07:42 Free T4 1.77 ng/dL (0.78-2.19) 09/01/18 07:42 Urine Color Yellow 08/30/18 14:56 Urine Appearance Cloudy (Clear) 08/30/18 14:56 Urine pH 7.0 (5.0-8.0) 08/30/18 14:56 Ur Specific [place] 1.016 (1.001-1.035) 08/30/18 14:56 Urine Protein Trace (Negative) H 08/30/18 14:56 Urine Glucose (UA) Negative (Negative) 08/30/18 14:56 Urine Ketones Negative (Negative) 08/30/18 14:56 Urine Blood Trace (Negative) H 08/30/18 14:56 Urine Nitrite Positive (Negative) 08/30/18 14:56 Urine Bilirubin Negative (Negative) 08/30/18 14:56 Urine Urobilinogen <2.0 mg/dL (<2.0) 08/30/18 14:56 Ur Leukocyte Esterase Large (Negative) H 08/30/18 14:56 Urine RBC 8 /hpf (0-5) H 08/30/18 14:56 Urine WBC 80 /hpf (0-5) H 08/30/18 14:56 Ur Squamous Epith Cells 1 /hpf (0-4) 08/30/18 14:56 Hyaline Casts 3 /lpf (0-2) H 08/30/18 14:56 Urine Mucus Rare /hpf (None) H 08/30/18 14:56 Laboratory Results WBC 12.0 k/uL (3.8-10.6) H 09/01/18 07:42 RBC 3.71 m/uL (4.30-5.90) L 09/01/18 07:42 Hgb 9.4 gm/dL (13.0-17.5) L 09/01/18 07:42 Hct 30.6 % (39.0-53.0) L 09/01/18 07:42 MCV 82.5 fL (80.0-100.0) 09/01/18 07:42 MCH 25.4 pg (25.0-35.0) 09/01/18 07:42 MCHC 30.8 g/dL (31.0-37.0) L 09/01/18 07:42 RDW 18.7 % (11.5-15.5) H 09/01/18 07:42 Plt Count 515 k/uL (150-450) H 09/01/18 07:42 Neutrophils % 85 % 09/01/18 07:42 Lymphocytes % 8 % 09/01/18 07:42 Monocytes % 5 % 09/01/18 07:42 Eosinophils % 0 % 09/01/18 07:42 Basophils % 0 % 09/01/18 07:42 Neutrophils # 10.1 k/uL (1.3-7.7) H 09/01/18 07:42 Lymphocytes # 1.0 k/uL (1.0-4.8) 09/01/18 07:42 Monocytes # 0.7 k/uL (0-1.0) 09/01/18 07:42 Eosinophils # 0.0 k/uL (0-0.7) 09/01/18 07:42 Basophils # 0.0 k/uL (0-0.2) 09/01/18 07:42 Hypochromasia Moderate 09/01/18 07:42 Anisocytosis Slight 09/01/18 07:42 Microcytosis Slight 09/01/18 07:42 PT 10.9 sec (9.0-12.0) 08/30/18 13:06 INR 1.0 (<1.2) 08/30/18 13:06 APTT 27.1 sec (22.0-30.0) 08/30/18 13:06 Sodium 141 mmol/L (137-145) 09/01/18 07:42 Potassium 3.7 mmol/L (3.5-5.1) 09/01/18 07:42 Chloride 106 mmol/L (98-107) 09/01/18 07:42 Carbon Dioxide 23 mmol/L (22-30) 09/01/18 07:42 Anion Gap 12 mmol/L 09/01/18 07:42 BUN 16 mg/dL (9-20) 09/01/18 07:42 Creatinine 0.91 mg/dL (0.66-1.25) 09/01/18 07:42 Est GFR (CKD-EPI)AfAm >90 (>60 ml/min/1.73 sqM) 09/01/18 07:42 Est GFR (CKD-EPI)NonAf 79 (>60 ml/min/1.73 sqM) 09/01/18 07:42 Glucose 83 mg/dL (74-99) 09/01/18 07:42 Lactic Ac Sepsis Rflx Y 08/30/18 14:56 Plasma Lactic Acid Adeel 1.1 mmol/L (0.7-2.0) 08/30/18 18:35 Calcium 9.2 mg/dL (8.4-10.2) 09/01/18 07:42 Iron 21 ug/dL (65-175) L 09/01/18 07:42 TIBC 163 ug/dL (228-460) L 09/01/18 07:42 Iron Saturation 12.88 (15.00-50.00) L 09/01/18 07:42 Transferrin 89.7 mg/dL (204.0-354.0) L 09/01/18 07:42 Ferritin 2086.0 ng/mL (22.0-322.0) H 09/01/18 07:42 Total Bilirubin 0.6 mg/dL (0.2-1.3) 08/30/18 13:06 AST 17 U/L (17-59) 08/30/18 13:06 ALT 10 U/L (21-72) L 08/30/18 13:06 Alkaline Phosphatase 165 U/L (38-126) H 08/30/18 13:06 Total Protein 6.2 g/dL (6.3-8.2) L 08/30/18 13:06 Albumin 3.1 g/dL (3.5-5.0) L 08/30/18 13:06 Vitamin B12 >4000.0 pg/mL (211-911) H 09/01/18 07:42 TSH 0.375 mIU/L (0.465-4.680) L 09/01/18 07:42 Free T4 1.77 ng/dL (0.78-2.19) 09/01/18 07:42 Urine Color Yellow 08/30/18 14:56 Urine Appearance Cloudy (Clear) 08/30/18 14:56 Urine pH 7.0 (5.0-8.0) 08/30/18 14:56 Ur Specific [place] 1.016 (1.001-1.035) 08/30/18 14:56 Urine Protein Trace (Negative) H 08/30/18 14:56 Urine Glucose (UA) Negative (Negative) 08/30/18 14:56 Urine Ketones Negative (Negative) 08/30/18 14:56 Urine Blood Trace (Negative) H 08/30/18 14:56 Urine Nitrite Positive (Negative) 08/30/18 14:56 Urine Bilirubin Negative (Negative) 08/30/18 14:56 Urine Urobilinogen <2.0 mg/dL (<2.0) 08/30/18 14:56 Ur Leukocyte Esterase Large (Negative) H 08/30/18 14:56 Urine RBC 8 /hpf (0-5) H 08/30/18 14:56 Urine WBC 80 /hpf (0-5) H 08/30/18 14:56 Ur Squamous Epith Cells 1 /hpf (0-4) 08/30/18 14:56 Hyaline Casts 3 /lpf (0-2) H 08/30/18 14:56 Urine Mucus Rare /hpf (None) H 08/30/18 14:56 Microbiology 08/30/18 13:06 Blood Blood Culture - Preliminary No Growth after 120 hours 08/30/18 14:56 Urine,Voided Urine Culture - Final Pseudomonas aeruginosa Assessment and Plan (1) Pneumonia Current Visit: Yes Status: Acute Code(s): J18.9 - PNEUMONIA, UNSPECIFIED ORGANISM SNOMED Code(s): 041105051 (2) Altered mental status Current Visit: No Status: Acute Code(s): R41.82 - ALTERED MENTAL STATUS, UNSPECIFIED SNOMED Code(s): 112121711 (3) Fever Current Visit: No Status: Acute Code(s): R50.9 - FEVER, UNSPECIFIED SNOMED Code(s): 478849837 (4) Pseudomonas urinary tract infection Narrative/Plan: 78-year-old male who has a history of dementia and multiple medical troubles that includes a remote history of herpetic encephalitis presents to hospital with increasing weakness and generalized malaise. He was found evidence of a right upper lobe pneumonia and has been treated with ceftriaxone and azithromycin and was showing some improvement. However he still has ongoing leukocytosis and there was evidence of abnormality to his urine and consequently urine culture were obtained. Abnormal urinalysis and urine culture has evidence of pseudomonas aeruginosa that is resistant ciprofloxacin. This is not unusual at this time. For antibiotic therapy transition Rocephin to ceftazidime, continue azithromycin for now. Monitor his fever it was 101.8. Leukocytosis is improving from 22-12. He does have chronic anemia. We'll expect as his underlying infection improves his mental status should improve further. 09/04/2018 the patient has had improvement in his status and that his fever is improving. There is evidence of the Pseudomonas urinary tract infection and this is being treated with ceftazidime. He also had pneumonia. Follow-up chest x-rays are showing some improvement. There is encouraged to some of the atypical nature of the chest x-ray. However with the clearance will continue the course of antibiotic therapy. He will go to extended care to receive cefotaxime and oral azithromycin. When he has completed his antibiotic therapy and has recovered a follow-up chest x-ray at that time will be helpful to ensure clearance of the abnormalities that have been seen. Current Visit: Yes Status: Acute Code(s): N39.0 - URINARY TRACT INFECTION, SITE NOT SPECIFIED; B96.5 - [facility]SEUDOMONAS [facility]MALLEI[facility] Code(s): 582926649
[2018-09-05] MEDS: DOCUSATE 100 MG CAP PO SCH (08:10)
[2018-09-05] MEDS: HEPARIN SODIUM,PORCINE 5,000 UNIT/ML 1 ML VIAL SQ SCH ×2 (08:10→20:22)
[2018-09-05] MEDS: AZITHROMYCIN 500 MG TAB PO SCH (08:10)
[2018-09-05] MEDS: FAMOTIDINE 20 MG TAB PO SCH ×2 (08:10→20:22)
[2018-09-05] MEDS: MEMANTINE 10 MG TAB PO SCH ×2 (08:11→20:22)
[2018-09-05] MEDS: buPROPion SR 150 MG TABLET.ER PO SCH (08:11)
[2018-09-05] MEDS: amLODIPine 10 MG TAB PO SCH (08:11)
[2018-09-05] MEDS: ACETAMINOPHEN TAB 325 MG TAB PO PRN (08:15)
[2018-09-05 10:19] LABS: Anisocytosis Slight; HCT 29.4 % (39.0-53.0); HGB 9.1 gm/dL (13.0-17.5); Hypochromasia Marked; MCH 25.5 pg (25.0-35.0); MCHC 30.9 g/dL (31.0-37.0); MCV 82.6 fL (80.0-100.0); Mean Platelet Volume 6.9; Microcytosis Slight; Platelet Count 394 k/uL (150-450); RBC 3.56 m/uL (4.30-5.90); WBC 12.3 k/uL (3.8-10.6)
[2018-09-05 10:42] LABS: African American GFR (CKD) >90 (>60 ml/min/1.73 sqM); Anion Gap 5 mmol/L; Blood Urea Nitrogen 17 mg/dL (9-20); Calcium 9.1 mg/dL (8.4-10.2); Carbon Dioxide 29 mmol/L (22-30); Chloride 108 mmol/L (98-107); Glucose 129 mg/dL (74-99); Potassium 3.3 mmol/L (3.5-5.1); Sodium 142 mmol/L (137-145)
[2018-09-05] MEDS ORDERED: Potassium Replacement Protocol 1 EACH MISC MISCELLANE PRN (10:57)
[2018-09-05] MEDS: POTASSIUM CHLORIDE ER 20 MEQ TAB.ER PO SCH ×2 (11:39→12:53)
[2018-09-05 12:47] VITALS: RESP 20
--- NOTE | 2018-09-05 14:23 | CDI ---
Documentation Clarification Form Date: 09/05/2018 2:09:05 PM From: Anabella Gay RN CCDS Admit Date: 08/30/2018 4:32:00 PM Patient Name: Hiro Walker Visit Number: [id number] Discharge Date: ATTENTION: The Clinical Documentation Specialists (CDI) and [facility] Coding Staff appreciate your assistance in clarifying documentation. Please respond to the clarification below the line at the bottom and electronically sign. The CDI & [facility] Coding staff will review the response and follow-up if needed. Please note: Queries are made part of the Legal Health Record. If you have any questions, please contact the author of this message via ITS. Dr. Edwin Camargo Altered Mental Status was documented in your consult and progress note. History/Risk Factors: 77 year old male presents to the ED with generalized weakness and a fall. Medical History HTN, OA recent left hip fracture froma a fall and repair. Clinical Indicators: Labs: Wbc 22.9; Hgb 9.6; plt 613; Neutrophils 20.9; Cr 1.33; Bun 25; Lactic Acid 2.4; Alk Phos 165; ALT 10; UA culture Pseudomanas aeruginosa X Ray: right upper lobe infiltrate Treatment: Ceftriaxone; Azithromcyin: Ceftazudune; 0.9ns 500cc/bolus In your professional opinion, please clarify the etiology of the Altered Mental Status, if known. Encephalopathy (specify Type and Underlying Medical Illness) Toxic Metabolic Encephalopathy due to Pneumonia and Pseudomonas UTI Dementia (if know, specify Type and if with/without Behavioral Disturbance) Other condition (please specify) Unable to determine (Last Revision: May 2017) MTDD
[2018-09-05] MEDS ORDERED: POTASSIUM CHLORIDE ER 20 MEQ TAB.ER PO SCH (15:00)
[2018-09-05] MEDS ORDERED: POTASSIUM CHLORIDE ER 20 MEQ TAB.ER PO STA (15:22)
[2018-09-05 15:58] VITALS: BMI 21.2
[2018-09-05] MEDS: ASPIRIN 81 MG PO SCH (17:00)
[2018-09-05] MEDS: ATORVASTATIN 10 MG TAB PO SCH (17:00)
[2018-09-05] MEDS: SODIUM CHLORIDE 0.9% 1,000 ML IV SCH (17:04)
[2018-09-05 22:06] VITALS: PULSE 94
--- NOTE | 2018-09-05 22:15 | P.PN ---
Subjective Patient is a 78-year-old male with a known history of dementia, hypertension, hyperlipidemia and osteoarthritis and recent history of left hip fracture and fall came to ER with the complaints of generalized weakness and unable to walk without support. Patient has been having worsening weakness recently. Patient felt very weak and had a fall today which made him come to the ER. As per his also weak and leaned onto the floor. Denied any sudden fall or hit his head. Patient was released from the extended care facility 6 weeks ago. Denied any complaints of chest pain or shortness of breath. Patient does have cough without sputum production. No fever no chills. Denied any heart racing of fast. No nausea vomiting or diarrhea. No dysuria or hematuria. No leg swelling. No focal weakness and numbness. No tingling sensation. Chest x-ray showed new sub-hilar density that given its spiculated morphology is concerning for right upper lobe mass, however this could alternatively the present pneumonia. Correlated the clinical findings to determine the need for short-term follow-up versus CT thorax. Patient was found have leukocytosis with WBC count 22, lactic acid 2.4 and a slightly elevated BUN and creatinine level. Patient is a poor historian and most the history was taken from the medical records and his at bedside. 09/03/2018 Patient was sleeping at the time examination. He says that he's feeling fine shortness of breath is improving still coughing She doesn't complain of any chest pain racing heart, no abdominal pain, nausea and vomiting, or diarrhea constipation 09/04/2018 Patient seen and looks more alert and oriented today when compared to yesterday He does not complain of any chest pain racing heart, no cough no shortness of breath He does not complain of any abdominal pain, nausea and vomiting. Apparently is constipated didn't have a bowel movement 09/05/2018 Patient doing much better today Some cough, sob better, no chest pian, no racign heart Objective - Vital Signs Vital signs: Vital Signs Temp 98.6 F 09/05/18 21:30 Pulse 94 09/05/18 21:30 Resp 20 09/05/18 21:30 BP 110/65 09/05/18 21:30 Pulse Ox 96 09/05/18 21:30 Intake & Output 09/05/18 09/05/18 09/06/18 06:59 18:59 06:59 Weight 74.843 kg Other: Voiding Method Incontinent Incontinent # Voids 3 3 # Bowel Movements 1 0 - Exam On exam, alert and oriented x3. HEENT: Conjunctivae normal. eyes normal. NECK: No JVD. No thyroid enlargement. No LNs CARDIOVASCULAR: S1, S2 muffled. No murmur RESPIRATION: Patient is having rhonchi and crackles present was not able to appreciate any wheezing. ABDOMEN: Soft, nontender . No guarding. no masses palpable. No ascites, No hepatosplenomegaly.Bowel sounds heard. LEGS: No edema. no swelling NERVOUS SYSTEM: Cranial N 2-12 grossly normal. Moves all 4 limbs. No focal deficits. No sensory deficit patient is really weak on the bilateral lower extremities when compared to the upper extremities. Skin: no ulcer no rash . - Labs CBC & Chem 7: 09/05/18 09:46 09/05/18 16:40 Labs: Abnormal Lab Results - Last 24 Hours (Table) 09/05/18 09/05/18 09/05/18 Range/Units 09:46 09:46 14:21 WBC 12.3 H (3.8-10.6) k/uL RBC 3.56 L (4.30-5.90) m/uL Hgb 9.1 L (13.0-17.5) gm/dL Hct 29.4 L (39.0-53.0) % MCHC 30.9 L (31.0-37.0) g/dL RDW 19.0 H (11.5-15.5) % Potassium 3.3 L 2.9 L (3.5-5.1) mmol/L Chloride 108 H (98-107) mmol/L Glucose 129 H (74-99) mg/dL 09/05/18 Range/Units 16:40 WBC (3.8-10.6) k/uL RBC (4.30-5.90) m/uL Hgb (13.0-17.5) gm/dL Hct (39.0-53.0) % MCHC (31.0-37.0) g/dL RDW (11.5-15.5) % Potassium 3.4 L (3.5-5.1) mmol/L Chloride (98-107) mmol/L Glucose (74-99) mg/dL Microbiology - Last 24 Hours (Table) 08/30/18 13:06 Blood Culture - Final Blood No Growth after 144 hours Assessment and Plan Assessment: Acute right upper lobe pneumonia. Possible right upper lobe mass cannot be excluded. Repeat chest x-ray showed resolving infiltrate. Acute urinary tract infection with Pseudomonas Sepsis secondary to pneumonia Lactic acidosis resolved Normocytic anemia. Rule out iron deficiency, B12 deficiency Generalized weakness and medical debility Dementia Hypertension Hyperlipidemia Osteoarthritis History of fall and left hip fracture earlier this year. Previous history of smoking Plan We'll continue antibiotics for now We'll discuss with infectious disease to see the patient is a CT chest to rule out a mass. Chest x-ray shows improving infiltrates We'll continue rest of the medical care PT OT is following the patient Patient says that he does not have any back pain. We will need to begin to further as to why he is having weakness. Will probably get CT of the L-spine to rule out any pathology We'll continue to follow the patient 09/04/2018 Continue antibiotics as per infectious disease recommendations. Antibiotics changed to Fortaz as the urine cultures grew Pseudomonas Continue rest of the medical care Continue PT OT Patient to go to rehab once stable. We'll wait for infectious disease recommendations regarding the antibiotics dose and duration and depending upon that we'll plan for discharge 09/05/2018 - Potassium levels very low at 2.9. Will order for potassium replacement protocol - Repeat potassium in the am - Continue fortaz and zithromax - Continue rest of the meds - If potassium levels normal in the am,possible dc
[2018-09-06 05:27] VITALS: BP 129/63; TEMP 98.5
[2018-09-06] MEDS: amLODIPine 10 MG TAB PO SCH (07:25)
[2018-09-06] MEDS: FAMOTIDINE 20 MG TAB PO SCH (07:25)
[2018-09-06] MEDS: MEMANTINE 10 MG TAB PO SCH (07:25)
[2018-09-06] MEDS: AZITHROMYCIN 500 MG TAB PO SCH (07:25)
[2018-09-06] MEDS: DOCUSATE 100 MG CAP PO SCH (07:25)
[2018-09-06] MEDS: HEPARIN SODIUM,PORCINE 5,000 UNIT/ML 1 ML VIAL SQ SCH (07:25)
[2018-09-06] MEDS: buPROPion SR 150 MG TABLET.ER PO SCH (07:26)
[2018-09-06 07:59] LABS: Anisocytosis Slight; HCT 29.6 % (39.0-53.0); HGB 8.9 gm/dL (13.0-17.5); Hypochromasia Moderate; MCH 24.9 pg (25.0-35.0); MCHC 30.2 g/dL (31.0-37.0); MCV 82.3 fL (80.0-100.0); Mean Platelet Volume 6.5; Microcytosis Slight; Platelet Count 419 k/uL (150-450); RDW 19.6 % (11.5-15.5); WBC 12.5 k/uL (3.8-10.6)
[2018-09-06 08:12] LABS: African American GFR (CKD) >90 (>60 ml/min/1.73 sqM); Anion Gap 5 mmol/L; Blood Urea Nitrogen 17 mg/dL (9-20); Calcium 9.2 mg/dL (8.4-10.2); Carbon Dioxide 29 mmol/L (22-30); Chloride 107 mmol/L (98-107); Glucose 96 mg/dL (74-99); Potassium 3.8 mmol/L (3.5-5.1); Sodium 141 mmol/L (137-145)
--- NOTE | 2018-09-06 10:55 | P.DS ---
Providers Date of admission: 08/30/18 16:32 Expected date of discharge: 09/06/18 Attending physician: Mary Caldera Consults: 09/02/18 08:01 Consult Physician Routine Consulting Provider: Edwin Camargo Consult Reason/Comments: positive urine culture Do you want consulting provider notified?: Yes Primary care physician: Arianne Brewer [facility] Course: Discharge diagnosis Acute right upper lobe pneumonia. Possible right upper lobe mass cannot be excluded. Repeat chest x-ray showed resolving infiltrate. Acute urinary tract infection with Pseudomonas Sepsis secondary to pneumonia Lactic acidosis resolved Normocytic anemia. Rule out iron deficiency, B12 deficiency Generalized weakness and medical debility Dementia Hypertension Hyperlipidemia Osteoarthritis History of fall and left hip fracture earlier this year. Previous history of smoking Hospital course Patient is a 78-year-old male with a known history of dementia, hypertension, hyperlipidemia and osteoarthritis and recent history of left hip fracture and fall came to ER with the complaints of generalized weakness and unable to walk without support. Patient has been having worsening weakness recently. Patient felt very weak and had a fall today which made him come to the ER. As per his also weak and leaned onto the floor. Denied any sudden fall or hit his head. Patient was released from the extended care facility 6 weeks ago. Denied any complaints of chest pain or shortness of breath. Patient does have cough without sputum production. No fever no chills. Denied any heart racing of f ast. No nausea vomiting or diarrhea. No dysuria or hematuria. No leg swelling. No focal weakness and numbness. No tingling sensation. Chest x-ray showed new sub-hilar density that given its spiculated morphology is concerning for right upper lobe mass, however this could alternatively the present pneumonia. Correlated the clinical findings to determine the need for short-term follow-up versus CT thorax. Patient was found have leukocytosis with WBC count 22, lactic acid 2.4 and a slightly elevated BUN and creatinine level. The patient was started on Rocephin and Zithromax. His urine cultures came back positive for Pseudomonas. His antibiotics were changed to Fortaz and he was continued on Zithromax. He started to improve significantly. On 09/06/2018 Patient was alert oriented and was talking. He is complaining of no chest pain or racing heart, he shortness of breath and cough are improving, he starting to eat. He starting to participate in the physical therapy. On exam, alert and oriented x3. HEENT: Conjunctivae normal. eyes normal. NECK: No JVD. No thyroid enlargement. No LNs CARDIOVASCULAR: S1, S2 muffled. No murmur RESPIRATION: Patient is having rhonchi and crackles present was not able to appreciate any wheezing. ABDOMEN: Soft, nontender . No guarding. no masses palpable. No ascites, No hepatosplenomegaly.Bowel sounds heard. LEGS: No edema. no swelling NERVOUS SYSTEM: Cranial N 2-12 grossly normal. Moves all 4 limbs. No focal deficits. No sensory deficit patient is really weak on the bilateral lower extremities when compared to the upper extremities. Skin: no ulcer no rash . Patient is almost back to his baseline except for the weakness for which she is going to rehab His potassium was low yesterday and it was replaced. Potassium is back to 3.8 this morning. We'll recheck the potassium in 2 days to assure stability Patient Condition at Discharge: Fair Plan - Discharge Summary Discharge Rx Participant: No New Discharge Prescriptions: New cefTAZidime [Fortaz] 2 gm IVPB Q8HR #30 vial Azithromycin [Zithromax] 500 mg PO DAILY #5 tab Acetaminophen 650 mg PO Q6H PRN #60 capsule PRN Reason: Pain Ipratropium-Albuterol Nebulize [Duoneb 0.5 mg-3 mg/3 ml Soln] 3 ml INHALATION RT-Q6H PRN #60 ampul.neb PRN Reason: Shortness Of Breath Or Wheezing Melatonin 3 mg PO HS PRN #10 tablet PRN Reason: Insomnia Famotidine [Pepcid] 20 mg PO Q12HR #30 tab Sennosides 8.6 mg PO DAILY PRN #30 tablet PRN Reason: Constipation Continue buPROPion HCL [Wellbutrin SR] 150 mg PO DAILY amLODIPine [Norvasc] 10 mg PO DAILY Simvastatin [Zocor] 20 mg PO HS@1700 Aspirin EC [Ecotrin Low Dose] 81 mg PO DAILY@1700 Memantine [Namenda] 10 mg PO BID Discharge Medication List Aspirin EC [Ecotrin Low Dose] 81 mg PO DAILY@1700 03/14/18 [History] Memantine [Namenda] 10 mg PO BID 03/14/18 [History] Simvastatin [Zocor] 20 mg PO HS@1700 03/14/18 [History] amLODIPine [Norvasc] 10 mg PO DAILY 03/14/18 [History] buPROPion HCL [Wellbutrin SR] 150 mg PO DAILY 03/14/18 [History] Azithromycin [Zithromax] 500 mg PO DAILY #5 tab 09/04/18 [Rx] cefTAZidime [Fortaz] 2 gm IVPB Q8HR #30 vial 09/04/18 [Rx] Acetaminophen 650 mg PO Q6H PRN #60 capsule 09/05/18 [Rx] Famotidine [Pepcid] 20 mg PO Q12HR #30 tab 09/05/18 [Rx] Ipratropium-Albuterol Nebulize [Duoneb 0.5 mg-3 mg/3 ml Soln] 3 ml INHALATION RT-Q6H PRN #60 ampul.neb 09/05/18 [Rx] Melatonin 3 mg PO HS PRN #10 tablet 09/05/18 [Rx] Sennosides 8.6 mg PO DAILY PRN #30 tablet 09/05/18 [Rx] Follow up Appointment(s)/Referral(s): Osman Acuña MD [Primary Care Provider] - 1-2 days [facility] Visiting Nurse, [NON-STAFF] - 1 Week Ambulatory/Diagnostic Orders: Basic Metabolic Panel [LAB.AMB] Time Frame: 2 Days, Location: None Selected Complete Blood Count w/diff [LAB.AMB] Location: None Selected XR chest 2V [RAD.AMB] Time Frame: 2 Weeks, Location: None Selected Patient Instructions/Handouts: Pneumonia (DC) Activity/Diet/Wound Care/Special Instructions: If you start having increased shortness of breath or increased cough, any fevers or chills, any increased altered level of consciousness, any confusion, any decreased responsiveness, any chest pain racing heart, any swelling of cure lower extremities, any bleeding from anywhere, any loss of vision or blurry vision and feeling weak, please call 911 and come to the ER immediately Discharge Disposition: TRANSFER TO SNF/ECF
== END 2018-09-06 12:48 | DRG 871 ==
LOC: EC 13:44 → 4MS4W 16:32
PROVIDERS: ADMIT Internal Medicine; ATTEND Internal Medicine
PROC: B54NZZA Ultrasonography of Left Upper Extremity Veins, Guidance (ICD-10-PCS; principal; 2018-09-05 14:30)
PROC: 05HC33Z Insertion of Infusion Device into Left Basilic Vein, Percutaneous Approach (ICD-10-PCS; principal; 2018-09-05 14:30)
DX: A41.52 Sepsis due to Pseudomonas (principal); J18.1 Lobar pneumonia, unspecified organism; N39.0 Urinary tract infection, site not specified; E87.2 Acidosis; G93.49 Other encephalopathy; D64.9 Anemia, unspecified; F03.90 Unspecified dementia, unspecified severity, without behavioral disturbance, psychotic disturbance, mood disturbance, and anxiety; I10 Essential (primary) hypertension; E78.5 Hyperlipidemia, unspecified; R91.8 Other nonspecific abnormal finding of lung field; M19.90 Unspecified osteoarthritis, unspecified site; K59.00 Constipation, unspecified; W19.XXXA Unspecified fall, initial encounter; Z79.82 Long term (current) use of aspirin; Z87.891 Personal history of nicotine dependence; Z79.899 Other long term (current) drug therapy; Z98.890 Other specified postprocedural states; S72.002S Fracture of unspecified part of neck of left femur, sequela; Z86.19 Personal history of other infectious and parasitic diseases; Z87.828 Personal history of other (healed) physical injury and trauma
CPT/HCPCS: 36410; 36415; 71045; 71046; 73502; 76937; 80048; 80053; 81001; 82607; 82728; 83540; 83550; 83605; 83735; 84132; 84439; 84443; 84466; 85025; 85027; 85610; 85730; 87040; 87077; 87086; 87186; 93005; 96365; 96367; 96375; 99285

== ENCOUNTER 2018-09-12 17:25 | Inpatient (IN) | payer MEDICARE, BC ==
[2018-09-12] MEDS ORDERED: SODIUM CHLORIDE 0.9% 1,000 ML IV STA (17:45)
[2018-09-12] MEDS ORDERED: RX INFO: IV CONTRAST WAS GIVEN 1 EACH MISC MISCELLANE PRN (17:45)
[2018-09-12] MEDS ORDERED: IPRATROPIUM-ALBUTEROL 3 ML NEB INHALATION STA (17:50)
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
[2018-09-12 18:43] LABS: Anisocytosis Moderate; Basophils % (A) 0 %; Eosinophils # (A) 0.1 k/uL (0-0.7); Eosinophils % (A) 0 %; HCT 31.7 % (39.0-53.0); HGB 9.6 gm/dL (13.0-17.5); Hypochromasia Marked; Lymphocytes # (A) 1.3 k/uL (1.0-4.8); Lymphocytes % (A) 9 %; MCH 25.5 pg (25.0-35.0); MCHC 30.2 g/dL (31.0-37.0); MCV 84.6 fL (80.0-100.0); Mean Platelet Volume 6.9; Microcytosis Slight; Monocytes # (A) 0.9 k/uL (0-1.0); Monocytes % (A) 5 %; Neutrophils # (A) 13.2 k/uL (1.3-7.7); Neutrophils % (A) 85 %; Platelet Count 599 k/uL (150-450); RBC 3.74 m/uL (4.30-5.90); RDW 20.4 % (11.5-15.5); WBC 15.7 k/uL (3.8-10.6)
[2018-09-12 18:49] LABS: Appearance,Urine Cloudy (Clear); Bacteria,Urine Rare /hpf; Bilirubin,Urine Negative (Negative); Blood,Urine Moderate (Negative); Calcium Oxalate Crystals,Urine Rare /hpf; Color,Urine Yellow; Glucose,Urine (UA) Negative (Negative); Granular Casts,Urine 9 /lpf (0); Hyaline Casts,Urine 3 /lpf (0-2); Ketones,Urine 1+ (Negative); Leukocyte Esterase,Urine Negative (Negative); Mucus,Urine Rare /hpf; Nitrite,Urine Negative (Negative); PH, Urine 5.5 (5.0-8.0); Protein,Urine 2+ (Negative); RBC,Urine 2 /hpf (0-5); Specific Gravity,Urine 1.026 (1.001-1.035); Urobilinogen,Urine <2.0 mg/dL (<2.0); WBC,Urine 2 /hpf (0-5)
[2018-09-12 18:51] LABS: Albumin 2.7 g/dL (3.5-5.0); Calcium 10.6 mg/dL (8.4-10.2); INR 1.1 (<1.2); Magnesium 2.4 mg/dL (1.6-2.3); Partial Thromboplastin Time 27.6 sec (22.0-30.0); Potassium 4.1 mmol/L (3.5-5.1); Prothrombin Time 11.6 sec (9.0-12.0); Total Bilirubin 0.4 mg/dL (0.2-1.3); Total Protein 5.5 g/dL (6.3-8.2)
[2018-09-12 19:08] LABS: T4, Free (Free Thyroxine) 1.16 ng/dL (0.78-2.19)
--- NOTE | 2018-09-12 20:05 | CT ---
EXAMINATION TYPE: CT chest w con DATE OF EXAM: 09/12/2018 COMPARISON: Chest x-ray 09/02/2018 HISTORY: Status post intubation HISTORY: Chest pain. History of pneumonia. CT DLP: 278.9 mGycm Automated exposure control for dose reduction was used. CONTRAST: CT scan of the chest is performed with IV Contrast, patient injected with 80 mL of Isovue 300. FINDINGS: LUNGS: The lungs are remarkable for spiculated right upper lobe lung mass which extends along the rivas or fissure and possibly to the floor RN the right upper lobe as well as towards the right hilum, the mass measures approximately 4.3 x 3.7 x 4.2 cm and shows some central low attenuation. There is some scattered subcentimeter nodularity in the subpleural location at the right lung base as well as in th e right upper lobe. There is associated emphysematous change. There is no pleural effusion or pneumot horax seen. The tracheobronchial tree is patent. MEDIASTINUM: Right hilar adenopathy is present, retrocaval pretracheal node is also enlarged measurin g 12 to 13 mm. There is no axillary adenopathy. There are coronary artery calcifications. . AORTA: Root of the aorta measures approximately 4.2 cm OTHER: Left adrenal fullness may be due to hyperplasia rather than metastasis. Lucent lesion is seen within the right bony labrum and possibly within the humeral head. 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 Coronary artery disease. Findings in the left adrenal gland as described. Aortic aneurysm. Emphysema.
[2018-09-12] MEDS ORDERED: LEVOFLOXACIN 750MG-D5W PMX 750 MG in DEXTROSE/WATER 1 150ML.BAG IVPB STA (20:31)
[2018-09-12] MEDS ORDERED: PNEUMONIA PROTOCOL UTILIZED 1 EACH MISC PO PRN (20:31)
[2018-09-12] MEDS ORDERED: PIPERACILLIN-TAZOBACTAM 3.375 GM in SODIUM CHLORIDE 0.9% 100 ML IVPB STA (20:31)
[2018-09-12] MEDS ORDERED: MAGNESIUM HYDROXIDE 2,400 MG/10 ML CUP PO PRN (23:01)
[2018-09-12] MEDS ORDERED: MELATONIN 3 MG TABLET PO PRN (23:01)
[2018-09-12] MEDS ORDERED: IPRATROPIUM-ALBUTEROL 3 ML NEB INHALATION PRN (23:01)
[2018-09-12] MEDS ORDERED: HYDROcodone/APAP 5-325MG 1 EACH TAB PO PRN (23:01)
[2018-09-12] MEDS ORDERED: BISACODYL 10 MG SUPP RECTAL PRN (23:01)
[2018-09-13] MEDS: ACETAMINOPHEN TAB 325 MG TAB PO PRN ×2 (02:06→09:16)
[2018-09-13] MEDS: SODIUM CHLORIDE 0.9% 1,000 ML IV SCH (03:36)
[2018-09-13] MEDS: PIPERACILLIN-TAZOBACTAM 3.375 GM in SODIUM CHLORIDE 0.9% 100 ML IVPB SCH ×3 (04:57→22:24)
[2018-09-13] MEDS ORDERED: NON-FORMULARY DRUG (Lactose-Reduced Food [Ensure Plus] 237 ML) PO SCH (08:00)
[2018-09-13] MEDS ORDERED: FAMOTIDINE 20 MG TAB PO SCH (08:00)
[2018-09-13] MEDS: buPROPion SR 150 MG TABLET.ER PO SCH (09:14)
[2018-09-13] MEDS: MEMANTINE 10 MG TAB PO SCH ×2 (09:15→17:34)
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
--- NOTE | 2018-09-13 10:34 | XR ---
EXAMINATION TYPE: XR chest 1V DATE OF EXAM: 09/13/2018 COMPARISON: 09/02/2018 HISTORY: Follow-up for pneumonia TECHNIQUE: Single frontal view of the chest is obtained. FINDINGS: There is a persistent vague right upper lobe opacity with a somewhat rounded morphology me asuring 3.4 cm. This corresponds to the mass seen on the prior CT of 09/12/2018. There is right hemidi aphragm elevation secondary to atelectasis and volume loss of the right upper lobe. Left lung remains well aerated. Cardiomediastinal silhouette is mildly enlarged. Mild multilevel degenerative changes of the spine and diffuse osseous mineralization. IMPRESSION: Peripheral opacity surrounding the known right upper lobe highly suspicious mass likely representing superimposed pneumonia .
[2018-09-13] MEDS: HYDROcodone/APAP 5-325MG 1 EACH TAB PO PRN ×3 (14:00→22:24)
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
[2018-09-13 15:29] LABS: Albumin 2.2 g/dL (3.5-5.0); Calcium 10.1 mg/dL (8.4-10.2); Potassium 4.2 mmol/L (3.5-5.1); Total Bilirubin 0.4 mg/dL (0.2-1.3); Total Protein 4.8 g/dL (6.3-8.2)
--- NOTE | 2018-09-13 15:39 | NM ---
EXAMINATION TYPE: NM bone scan whole body DATE OF EXAM: 09/13/2018 COMPARISON: Chest CT from yesterday HISTORY: New lung mass, new abnormal CT Delayed whole-body scanning was performed following the injection of 21.4 mCi Tc 99m MDP. Images acq uired 4 hours post injection. Whole body images in the anterior and posterior projection obtained. FINDINGS: There are innumerable sclerotic foci consistent with diffuse osseous metastatic disease involving the cervical thoracic and lumbar spine at multiple levels. Involve the multiple levels of the pelvis. In creased uptake surrounding lucent area suspicious for prosthesis left hip is present. This focus of u ptake mid to distal femur right lower extremity noted. There is right calvarial focus. Suspicious upt leslie is seen in the bilateral ribs. IMPRESSION: Diffuse osseous metastatic disease more prominent than suspected on recent CT where there is right lytic destruction noted T7 level.
[2018-09-13 16:53] VITALS: BMI 22.2
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
[2018-09-13] MEDS: ASPIRIN 81 MG PO SCH (17:34)
[2018-09-13] MEDS: HEPARIN SODIUM,PORCINE 5,000 UNIT/ML 1 ML VIAL SQ SCH ×2 (17:34→20:21)
[2018-09-13] MEDS: FERROUS SULFATE 325 MG TAB PO SCH (17:34)
[2018-09-13] MEDS: ATORVASTATIN 10 MG TAB PO SCH (20:21)
[2018-09-13] MEDS: IPRATROPIUM-ALBUTEROL 3 ML NEB INHALATION SCH (20:37)
[2018-09-13] MEDS ORDERED: LEVOFLOXACIN 750MG-D5W PMX 750 MG in DEXTROSE/WATER 1 150ML.BAG IVPB SCH (21:00)
[2018-09-14] MEDS: SODIUM CHLORIDE 0.9% 1,000 ML IV SCH ×2 (01:40→20:09)
[2018-09-14] MEDS: LORazepam 2 MG/ML INJ IV PRN ×2 (03:40→09:30)
[2018-09-14] MEDS: PIPERACILLIN-TAZOBACTAM 3.375 GM in SODIUM CHLORIDE 0.9% 100 ML IVPB SCH ×3 (05:05→20:09)
[2018-09-14] MEDS: IPRATROPIUM-ALBUTEROL 3 ML NEB INHALATION SCH ×3 (08:10→20:14)
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
[2018-09-14] MEDS: HEPARIN SODIUM,PORCINE 5,000 UNIT/ML 1 ML VIAL SQ SCH ×2 (09:09→20:13)
[2018-09-14] MEDS: buPROPion SR 150 MG TABLET.ER PO SCH (09:09)
[2018-09-14] MEDS: FAMOTIDINE 20 MG TAB PO SCH (09:09)
[2018-09-14] MEDS: HYDROcodone/APAP 5-325MG 1 EACH TAB PO PRN (09:10)
[2018-09-14] MEDS: MEMANTINE 10 MG TAB PO SCH ×2 (09:10→16:54)
[2018-09-14 09:25] LABS: Calcium 10.1 mg/dL (8.4-10.2); Potassium 3.9 mmol/L (3.5-5.1)
[2018-09-14 09:59] LABS: Anisocytosis Moderate; Basophils % (A) 0 %; Eosinophils # (A) 0.1 k/uL (0-0.7); Eosinophils % (A) 1 %; HCT 28.6 % (39.0-53.0); HGB 8.3 gm/dL (13.0-17.5); Hypochromasia Marked; Lymphocytes # (A) 0.8 k/uL (1.0-4.8); Lymphocytes % (A) 7 %; MCH 25.9 pg (25.0-35.0); MCV 89.4 fL (80.0-100.0); Mean Platelet Volume 7.2; Monocytes # (A) 0.5 k/uL (0-1.0); Monocytes % (A) 5 %; Neutrophils # (A) 9.5 k/uL (1.3-7.7); Neutrophils % (A) 87 %; Platelet Count 551 k/uL (150-450); RDW 20.4 % (11.5-15.5)
[2018-09-14] MEDS: HYDROmorphone 0.5 MG/0.5 ML SYRINGE IVP PRN ×3 (14:33→23:01)
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
[2018-09-14] MEDS: ASPIRIN 81 MG PO SCH (16:54)
[2018-09-14] MEDS: FERROUS SULFATE 325 MG TAB PO SCH (16:54)
[2018-09-14] MEDS: ATORVASTATIN 10 MG TAB PO SCH (20:13)
--- NOTE | 2018-09-14 20:33 | PN ---
PROGRESS NOTE DATE OF SERVICE: 09/14/2018. REASON FOR FOLLOWUP: Pneumonia. INTERVAL HISTORY: The patient is currently afebrile. The patient is overall poor. The patient is breathing comfortably. He did have very minimal cough, not bringing up any sputum. No nausea, vomiting. No choking on food or any diarrhea has been reported. PHYSICAL EXAMINATION: Blood pressure 113/55 with a pulse of 100. Temperature 98.8. He is 95% on 2 L nasal cannula. General description is an elderly male lying in bed in no distress. Respiratory system: Unlabored breathing. Decreased breath sounds in the bases, with no wheeze. Heart S1, S2. Regular rate and rhythm. Abdomen soft, no tenderness. LABS: Hemoglobin 8.1, white count 11, BUN of 27, creatinine is 1.23. Blood culture has been negative. No sputum has been collected. DIAGNOSTIC IMPRESSION AND PLAN: Patient admitted to the hospital with difficulty breathing, multifactorial the patient did have some left-sided mass with concern for possible for pneumonia. The patient is currently covered with Zosyn to continue. White count has normalized. Continue supportive care. MMODL / IJN: [id number] /
[2018-09-15] MEDS: HYDROmorphone 0.5 MG/0.5 ML SYRINGE IVP PRN ×5 (03:39→20:42)
[2018-09-15] MEDS: PIPERACILLIN-TAZOBACTAM 3.375 GM in SODIUM CHLORIDE 0.9% 100 ML IVPB SCH ×2 (04:30→13:10)
[2018-09-15 07:30] LABS: Anisocytosis Moderate; Basophils % (A) 0 %; Eosinophils # (A) 0.1 k/uL (0-0.7); Eosinophils % (A) 1 %; HCT 26.2 % (39.0-53.0); HGB 7.9 gm/dL (13.0-17.5); Hypochromasia Marked; Lymphocytes % (A) 10 %; MCH 26.1 pg (25.0-35.0); MCHC 30.2 g/dL (31.0-37.0); MCV 86.3 fL (80.0-100.0); Mean Platelet Volume 6.7; Microcytosis Slight; Monocytes # (A) 0.5 k/uL (0-1.0); Monocytes % (A) 5 %; Neutrophils # (A) 8.6 k/uL (1.3-7.7); Neutrophils % (A) 84 %; Platelet Count 509 k/uL (150-450); RBC 3.03 m/uL (4.30-5.90); RDW 20.5 % (11.5-15.5); WBC 10.2 k/uL (3.8-10.6)
[2018-09-15 07:47] LABS: Potassium 3.9 mmol/L (3.5-5.1)
[2018-09-15] MEDS: IPRATROPIUM-ALBUTEROL 3 ML NEB INHALATION SCH ×3 (08:35→20:15)
[2018-09-15] MEDS: buPROPion SR 150 MG TABLET.ER PO SCH (09:14)
[2018-09-15] MEDS: FAMOTIDINE 20 MG TAB PO SCH (09:14)
[2018-09-15] MEDS: MEMANTINE 10 MG TAB PO SCH ×2 (09:14→14:29)
[2018-09-15] MEDS: LORazepam 2 MG/ML INJ IV PRN ×3 (09:24→18:05)
[2018-09-15] MEDS: HEPARIN SODIUM,PORCINE 5,000 UNIT/ML 1 ML VIAL SQ SCH (09:46)
[2018-09-15 12:19] VITALS: BP 156/72; PULSE 96; RESP 18; TEMP 98.1
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
[2018-09-15] MEDS: FERROUS SULFATE 325 MG TAB PO SCH (14:28)
[2018-09-15] MEDS: ASPIRIN 81 MG PO SCH (14:28)
--- NOTE | 2018-09-15 17:00 | PN ---
PROGRESS NOTE DATE OF SERVICE: 09/15/2018. REASON FOR FOLLOWUP: Pneumonia, postoperative. INTERVAL HISTORY: The patient is currently afebrile. The patient is breathing comfortably. No respiratory distress has been noted. No nausea, no vomiting. Patient is currently lethargic, sleepy, and unable to provide any history. PHYSICAL EXAMINATION: Blood pressure 156/72 with a pulse of 96, temperature 98.1. He is 97% on 2 L nasal cannula. General description is an elderly male lying in bed in no distress. RESPIRATORY SYSTEM: Unlabored breathing with decreased intensity of breath sounds. No wheeze. HEART: S1, S2. Regular rate and rhythm. ABDOMEN: Soft. No tenderness. LABS: Hemoglobin 7.9, white count 10.2 with a BUN of 25, creatinine 1.14. Blood culture has been negative. DIAGNOSTIC IMPRESSION AND PLAN: Patient with metastatic lung cancer, question of possible post-obstructive pneumonia. The patient's family has decided to go with hospice, which is appropriate for him at this point. Currently on Zosyn. That can be safely discontinued. Family at the bedside. Their questions and concerns were answered. MMODL / IJN: [id number] /
[2018-09-15] MEDS: SODIUM CHLORIDE 0.9% 1,000 ML IV SCH (18:03)
[2018-09-15] MEDS ORDERED: LEVOFLOXACIN 750 MG TAB PO SCH ×2 (21:00)
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
== END 2018-09-15 22:05 | disposition still patient (30) | DRG 871 ==
LOC: EC 17:25 → 3NMEDONC 20:32
PROVIDERS: ADMIT Internal Medicine; ATTEND Internal Medicine
DX: A41.50 Gram-negative sepsis, unspecified (principal); J15.6 Pneumonia due to other Gram-negative bacteria; G93.41 Metabolic encephalopathy; N17.0 Acute kidney failure with tubular necrosis; C34.11 Malignant neoplasm of upper lobe, right bronchus or lung; C79.51 Secondary malignant neoplasm of bone; E87.2 Acidosis; Z87.891 Personal history of nicotine dependence; D63.8 Anemia in other chronic diseases classified elsewhere; E78.5 Hyperlipidemia, unspecified; E86.0 Dehydration; F03.90 Unspecified dementia, unspecified severity, without behavioral disturbance, psychotic disturbance, mood disturbance, and anxiety; F41.9 Anxiety disorder, unspecified; G89.3 Neoplasm related pain (acute) (chronic); I10 Essential (primary) hypertension; K21.9 Gastro-esophageal reflux disease without esophagitis; M19.90 Unspecified osteoarthritis, unspecified site; Z87.440 Personal history of urinary (tract) infections; Z87.01 Personal history of pneumonia (recurrent); Z87.820 Personal history of traumatic brain injury; Z91.81 History of falling; Z51.5 Encounter for palliative care; Z66 Do not resuscitate; Z79.82 Long term (current) use of aspirin; Z79.899 Other long term (current) drug therapy; Z86.61 Personal history of infections of the central nervous system; R59.0 Localized enlarged lymph nodes; R63.4 Abnormal weight loss; Z68.22 Body mass index [BMI] 22.0-22.9, adult; V89.2XXS Person injured in unspecified motor-vehicle accident, traffic, sequela
CPT/HCPCS: 36415; 71045; 71260; 78306; 80048; 80053; 81001; 83605; 83735; 84439; 84443; 84484; 85025; 85610; 85730; 87040; 93005; 94640; 96360; 99285